=== PATIENT | male | born 1940 | race Hispanic/Latino ===

== ENCOUNTER 2019-02-16 13:48 | Inpatient (IN) | payer MEDICARE ==
[~2019-02-16] VITALS: Ht 170.2 cm; Wt 50.1 kg
--- OUTSIDE RECORDS SUMMARY | 2019-02-16 13:51 | XMS REPORT ---
[facility] Address Unknown Phone Unavailable Care Team Providers Care Director Of Recruitment Name Role Phone Unavailable Unavailable Problems This patient has no known problems. Allergies, Adverse Reactions, Alerts This patient has no known allergies or adverse reactions. Medications This patient has no known medications. Results Test Description Test Time Test Comments Text Results Atomic Results Result Comments US Head/Neck Soft Tissue 2018-12-13 14:12:07 Patient: MINOO ANDERSON Date/Time12/13/2018 12:44 CDTReason for ExamM54.2 R59.0ReportEXAM: US Head/Neck Soft TissueHISTORY: Right neck pain for one month. M54.2 R59.0Location code: R 16COMPARISON: None available time of interpretation.TECHNIQUE: Targeted grayscale and color Doppler images of the right neck, area of pain obtained.FINDINGS:No focal mass or cyst or enlarged lymph node. No area of disturbed echotexture noted in the right neck. Jugular vein is patent.IMPRESSION:No focal abnormality identified in the right neck. Final Dictated by: MD Dukes Eniola FDictated DT/TM: 12/13/2018 2:10 pmSigned by: MD Dukes Eniola FSigned (Electronic Signature): 12/13/2018 2:12 pm XR Chest 2 Views 2018-12-13 14:10:29 Patient: MINOO ANDERSON Date/Time12/13/2018 12:57 CDTReason for ExamR63.4ReportEXAM: XR Chest 2 ViewsHISTORY: Weight loss. R63.4.Location code: R 16COMPARISON: None available time of interpretation.FINDINGS: There is a 2.4 cm the nodular opacity at the left upper lung, best seen on the on the frontal view. Lungs appear somewhat hyperinflated. No pleural effusions.Cardiomediastinal silhouette is within normal limits.No aggressive osseous features. Mild degenerative changes throughout thoracic spine.IMPRESSION:2.4 cm nodular opacity, left upper lung. Final Dictated by: MD Dukes Eniola FDictated DT/TM: 12/13/2018 2:08 pmSigned by: MD Dukes Eniola FSigned (Electronic Signature): 12/13/2018 2:10 pm MRI Abdomen w/o Contrast 2018-10-19 13:56:50 Patient: MINOO ANDERSON Date/Time10/19/2018 13:07 CDTReason for ExamR94.5 [id number] OF ABDOMEN WITHOUT GADOLINIUMHISTORY: R94.5 R17. ( Abnormal LFTs. Jaundice)Location R 16TECHNIQUE: Coronal T2, coronal T1, coronal T2 FIESTA, coronal T2, sagittal T2, axial T2 fat sat, axial 2-D FIESTA, axial diffusion, radial MRCP , coronal MRCP, MRCP MIP.Contrast: None.FINDINGS:Abdomen Findings:Liver: No focal liver lesions are evident. No intra or extrahepatic biliary dilatation.Gallbladder: Moderately distended however without evidence of wall thickening. A single calculus is seen within the gallbladder lumen measuring approximately 7 mm. CBD is prominent at 8 mm however within normal limits for patient's age. The CBD tapers normally. No filling defects to suggest choledocholithiasis. Findings are confirmed on MRCP.Pancreas: No significant abnormality.Spleen: Prominent in size at 14.7 cm.Pancreas: Mildly atrophic. No pancreatic ductal dilatation or side branch ectasia.Kidneys: No significant abnormality. No hydronephrosis.Adrenals: Normal sized.Bowel: Visible bowel loops are unremarkable.Peritoneum: No ascites.Vascular:No significant abnormality.Lymph Nodes:No significant abnormality.Osseous: No aggressive appearing osseous findings. Mild disc visualized lumbar spine.IMPRESSION:1. Cholelithiasis.2. No choledocholithiasis. No intra or extrahepatic biliary dilatation.3. No focal liver lesions identified within the limits of noncontrast exam.4. Prominent spleen at 14.7 cm. Final Dictated by: MD Roseline, Wendy FDictated DT/TM: 10/19/2018 1:47 pmSigned by: MD Roseline, Wendy FSigned (Electronic Signature): 10/19/2018 1:56 pm
[2019-02-16 14:52] LABS: BASOPHILS % 0.2 % (0.0-1.0); EOSINOPHILS % 0.1 % (0.0-6.0); HEMOGLOBIN 9.8 g/dL (14.0-18.0); LYMPHOCYTES # (AUTO) 1.3 (1.0-3.2); LYMPHOCYTES % 16.1 % (18.0-39.1); MEAN CORPUSCULAR HEMOGLOBIN 38.3 pg (28-32); MEAN CORPUSCULAR VOLUME 109.4 fL (81-99); MONOCYTES # (AUTO) 0.7 (0.2-0.8); MONOCYTES % 7.9 % (4.4-11.3); NEUTROPHILS # (AUTO) 6.2 (2.1-6.9); RED BLOOD COUNT 2.56 x10e6/uL (4.3-5.7); RED CELL DISTRIBUTION WIDTH 18.2 % (11.7-14.4)
[2019-02-16 14:57] LABS: PLATELET COUNT 77 x10e3/uL (140-360)
[2019-02-16 14:59] LABS: INR 2.05; PROTHROMBIN TIME 23.8 seconds (11.9-14.5)
[2019-02-16 15:00] LABS: PARTIAL THROMBOPLASTIN TIME 56.1 seconds (23.8-35.5)
--- NOTE | 2019-02-16 15:05 | NUR ---
MD NOTIFIED AND AWARE OF CRITICAL LAB VALUE; LACTIC ACID 2.3.
[2019-02-16 15:06] LABS: ALBUMIN 2.2 g/dL (3.5-5.0); ALBUMIN/GLOBULIN RATIO 0.4 (0.8-2.0); ANION GAP 12.9 mmol/L (8-16); CALCIUM 9.3 mg/dL (8.4-10.2); CREATININE, SERUM 1.21 mg/dL (0.72-1.25)
[2019-02-16 15:07] LABS: POTASSIUM 2.9 mmol/L (3.5-5.1)
--- NOTE | 2019-02-16 15:07 | NUR ---
DR. HENSON NOTIFIED AND AWARE OF CRITICAL LAB VALUE; POTASSIUM 2.9.
[2019-02-16 15:15] LABS: CREATINE KINASE MB 0.9 ng/mL (0-5.0)
[2019-02-16 15:27] LABS: BILIRUBIN,URINE MODERATE (NEGATIVE); CLARITY,URINE SL CLOUDY (CLEAR); KETONES,URINE NEGATIVE (NEGATIVE); LEUKOCYTE ESTERASE ,URINE LARGE (NEGATIVE); NITRITE,URINE NEGATIVE (NEGATIVE); PROTEIN,URINE DIPSTICK 1+ (NEGATIVE)
[2019-02-16 15:30] LABS: COLOR,URINE AMBER (YELLOW); URINE UROBILINOGEN 8 mg/dL (0.2 - 1)
[2019-02-16 15:39] LABS: BACTERIA,URINE MANY /HPF; EPITHELIAL CELLS,URINE RARE /LPF; RBC,URINE 21-50 /HPF (0-5)
[2019-02-16 15:40] LABS: AMORPHOUS SEDIMENT,URINE MODERATE (FEW)
[2019-02-16] MEDS ORDERED: POTASSIUM CHLORIDE 20 MEQ TAB CR PO STA (15:43)
--- NOTE | 2019-02-16 15:47 | Diagnostic Imaging Report ---
EXAMINATION: CHEST 2 VIEWS INDICATION: Chest pain, weakness COMPARISON: None FINDINGS: LINES/TUBES:EKG leads overlie the chest. LUNGS:The lungs are hyperinflated. Bilateral emphysematous changes. No focal consolidation or tao pulmonary edema. PLEURA:No pleural effusion or pneumothorax. MEDIASTINUM:The cardiomediastinal silhouette appears normal in size and shape. Atherosclerotic calcifications of the thoracic aorta. BONES/SOFT TISSUES:No acute osseous injury. ABDOMEN:No free air under the diaphragm. IMPRESSION: Hyperinflated lungs with emphysematous changes. No focal pneumonia or pulmonary edema. Signed by: Celestino Cardona MD on 02/16/2019 3:43 PM
[2019-02-16] MEDS: OSELTAMIVIR PHOSPHATE 75 MG CAP PO SCH (16:01)
[2019-02-16] MEDS: CEFEPIME 2 GM/NS 0.9% 100 ML 100 ML IV SCH (16:01)
[2019-02-16] MEDS ORDERED: SODIUM CHLORIDE 0.9% 500ML 500 ML IV ONE (16:30)
[2019-02-16] MEDS ORDERED: SODIUM CHLORIDE 0.9% 500ML 500 ML ONE (16:37)
[2019-02-16] MEDS ORDERED: SODIUM CHLORIDE 0.9% 250ML 250 ML IV ONE (17:15)
[2019-02-16] MEDS ORDERED: FUROSEMIDE INJ 10 MG/ML 2 ML VIAL IV PRN (17:15)
[2019-02-16] MEDS ORDERED: PANTOPRAZOLE 40 MG 10ML VIAL IV ONE (17:30)
[2019-02-16] MEDS ORDERED: OCTREOTIDE ACETATE 0.05 MG/ML AMP IV STA (17:37)
[2019-02-16] MEDS ORDERED: PHYTONADIONE 10 MG/ML AMP SC ONE (17:45)
[2019-02-16] MEDS ORDERED: SODIUM CHLORIDE 0.9% 1000ML 1,000 ML IV ONE (17:45)
--- NOTE | 2019-02-16 17:48 | Diagnostic Imaging Report ---
EXAM: CT Abdomen and Pelvis WITH intravenous contrast INDICATION: Abdominal pain, abdominal distention COMPARISON: None. TECHNIQUE: Abdomen and pelvis were scanned utilizing a multidetector helical scanner from the lung base to the pubic symphysis after administration of IV contrast. Coronal and sagittal reformations were obtained. Routine protocol was performed. Scan was performed during portal venous phase. IV CONTRAST: 100mL of Isovue 370 ORAL CONTRAST: Water RADIATION DOSE: Total DLP: 393.0 mGy*cm Dose modulation, iterative reconstruction, and/or weight based adjustment of the mA/kV was utilized to reduce the radiation dose to as low as reasonably achievable. FINDINGS: LOWER THORAX: Atherosclerotic coronary artery calcifications. Bibasilar dependent subsegmental atelectasis. Small left pleural effusion. HEPATOBILIARY: Nodular liver surface contour consistent with cirrhosis. Multiple proximally 1 cm hypodensities in the right and left liver are too small to adequately characterize but have the appearance of cysts. No biliary ductal dilation. Mildly distended gallbladder without wall thickening. SPLEEN: Mild splenomegaly to 14.5 cm. PANCREAS: 5 mm cystic lesion in the pancreatic body may represent a side branch intraductal papillary mucinous neoplasm. No ductal dilation. ADRENALS: No adrenal nodules. KIDNEYS/URETERS: No hydronephrosis, stones, or solid mass lesions. PELVIC ORGANS/BLADDER: Coarse calcifications in the prostate. PERITONEUM / RETROPERITONEUM: Large volume ascites in the abdomen and pelvis. LYMPH NODES: No lymphadenopathy. VESSELS: Moderate atherosclerotic calcifications of the nonaneurysmal abdominal aorta and major branches. The portal vasculature is patent. There are numerous upper abdominal portosystemic varices consistent with portal hypertension. GI TRACT: No abnormal bowel wall thickening or bowel obstruction. Normal appendix. Hyperdense material within the dependent stomach likely represents ingested contents. BONES AND SOFT TISSUES: No acute osseous injury. No suspicious lytic or blastic lesions. IMPRESSION: Hepatic cirrhosis and hepatic steatosis. Large volume ascites, prominent upper abdominal systemic varices, and mild splenomegaly consistent with portal hypertension. Atherosclerotic vascular calcifications including of the coronary arteries. Signed by: Celestino Cardona MD on 02/16/2019 5:44 PM
--- OUTSIDE RECORDS SUMMARY | 2019-02-16 18:30 | XMS REPORT ---
[facility] Address Unknown Phone Unavailable Care Team Providers Care Contract Engineer Name Role Phone Allison HENSON Unavailable Unavailable Problems This patient has no known problems. Allergies, Adverse Reactions, Alerts This patient has no known allergies or adverse reactions. Medications This patient has no known medications. Results Test Description Test Time Test Comments Text Results Atomic Results Result Comments CT ABDOMEN/PELVIS W 2019-02-16 17:33:[address] [address] Patient Name: MINOO BADILLO MR #: [id number] : 1940 Age/Sex: 79/M Req #: [id number] Adm Physician: Ordered by: URSULA HENSON MD Report #: [id number] Location: ER Room/Bed: Procedure: [id number] CT/CT ABDOMEN/PELVIS W Exam Date: 02/16/19 Exam Time: 1700 REPORT STATUS: Signed EXAM: CT Abdomen and Pelvis WITH intravenous contrast INDICATION: Abdominal pain, abdominal distention COMPARISON: None. TECHNIQUE: Abdomen and pelvis were scanned utilizing a multidetector helical scanner from the lung base to the pubic symphysis after administration of IV contrast. Coronal and sagittal reformations were obtained. Routine protocol was performed. Scan was performed during portal venous phase. IV CONTR AST: 100mL of Isovue 370 ORAL CONTRAST: Water RADIATION DOSE: Total DLP: 393.0 mGy*cm Dose modulation, iterative reconstruction, and/or weight based adjustment of the mA/kV was utilized to reduce the radiation dose to as low as reasonably achievable. FINDINGS: LOWER THORAX: Atherosclerotic coronary artery calcifications. Bibasilar dependent subsegmental atelectasis. Small left pleural effusion. HEPATOBILIARY: Nodular liver surface contour consistent with cirrhosis. Multiple proximally 1 cm hypodensities in the right and left liver are too small to adequately characterize but have the appearance of cysts. No biliary ductal dilation. Mildly distended gallbladder without wall thickening. SPLEEN: Mild splenomegaly to 14.5 cm. PANCREAS: 5 mm cystic lesion in the pancreatic body may represent a side branch intraductal papillary mucinous neoplasm. No ductal dilation. ADRENALS: No adrenal nodules. KIDNEYS/URETERS: No hydronephrosis, stones, or solid mass lesions. PELVIC ORGANS/BLADDER: Coarse calcifications in the prostate. PERITONEUM / RETROPERITONEUM: Large volume ascites in the abdomen and pelvis. LYMPH NODES: No lymphadenopathy. VESSELS: Moderate atherosclerotic calcifications of the nonaneurysmal abdominal aorta and major branches. The portal vasculature is patent. There are numerous upper abdominal portosystemic varices consistent with portal hypertension. GI TRACT: No abnormal bowel wall thickening or bowel obstruction. Normal appendix. Hyperdense material within the dependent stomach likely represents ingested contents. BONES AND SOFT TISSUES: No acute osseous injury. No suspicious lytic or blastic lesions. IMPRESSION: Hepatic cirrhosis and hepatic steatosis. Large volume ascites, prominent upper abdominal systemic varices, and mild splenomegaly consistent with portal hypertension. Atherosclerotic vascular calcifications including of the coronary arteries. Signed by: Vianey Mott MD on 02/16/2019 5:44 PM Dictated By: VIANEY MOTT MD 43 Transcribed By: CHANDRIKA on 02/16/191743 COPY TO: URSULA HENSON MD CHEST 2 VIEWS 2019-02-16 15:42:00 [place] [address] Patient Name: MINOO BADILLO MR #: [id number] : 1940 Age/Sex: 79/M Req #: [id number] Adm Physician: Ordered by: URSULA HENSON MD Report #: [id number] Location: ER Room/Bed: Procedure: [id number] DX/CHEST 2 VIEWS Exam Date: Exam Time: REPORT STATUS: Signed EXAMINATION: CHEST 2 VIEWS INDICATION: Chest pain, weakness COMPARISON: None FINDINGS: LINES/TUBES:EKG leads overlie the chest. LUNGS:The lungs are hyperinflated. Bilateral emphysematous changes. No focal consolidation or tao pulmonary edema. PLEURA:No pleural effusion or pneumothorax. MEDIASTINUM:The cardiomediastinal silhouette appears normal in size and shape. Atherosclerotic calcifications of the thoracic aorta. BONES/SOFT TISSUES:No acute osseous injury. ABDOMEN:No free air under the diaphragm. IMPRESSION: Hyperinflated lungs with emphysematous changes. No focal pneumonia or pulmonary edema. Signed by: Vianey Mott MD on 02/16/2019 3:43 PM Dictated By: VIANEY MOTT MD 42 Transcribed By: CHANDRIKA on 02/16/191542 COPY TO: URSULA HENSON MD US Head/Neck Soft Tissue 2018-12-13 14:12:07 Patient: [...] MINOO ANDERSON Date/Time10/19/2018 13:07 CDTReason for ExamR94.5 [id number] OF ABDOMEN WITHOUT GADOLINIUMHISTORY: R94.5 R17. ( [...] at 14.7 cm. Final Dictated by: MD Dukes Eniola FDictated DT/TM: 10/19/2018 1:47 pmSigned by: MD Dukes Eniola FSigned (Electronic Signature): 10/19/2018 1:56 pm
[2019-02-16] MEDS: OCTREOTIDE ACETATE 500 MCG in SODIUM CHLORIDE 0.9% 250ML 249 ML IV SCH (18:34)
[2019-02-16] MEDS ORDERED: SODIUM CHLORIDE 0.9% 50ML 50 ML ONE (20:49)
[2019-02-16] MEDS ORDERED: IOPAMIDOL 370 MG/ML 200 ML INFUS..BTL INJ ONE (20:49)
[2019-02-16 20:56] LABS: BASOPHILS % 0.4 % (0.0-1.0); EOSINOPHILS % 0.1 % (0.0-6.0); HEMATOCRIT 27.1 % (38.2-49.6); HEMOGLOBIN 9.3 g/dL (14.0-18.0); LYMPHOCYTES # (AUTO) 1.1 (1.0-3.2); MEAN CORPUSCULAR HEMOGLOBIN 38.1 pg (28-32); MEAN CORPUSCULAR HGB CONC 34.3 g/dL (31-35); MEAN CORPUSCULAR VOLUME 111.1 fL (81-99); MONOCYTES # (AUTO) 0.4 (0.2-0.8); MONOCYTES % 5.2 % (4.4-11.3); NEUTROPHILS # (AUTO) 6.3 (2.1-6.9); NEUTROPHILS % 79.5 % (38.7-80.0); RED BLOOD COUNT 2.44 x10e6/uL (4.3-5.7)
[2019-02-16 20:57] LABS: PLATELET COUNT 73 x10e3/uL (140-360)
[2019-02-16] MEDS ORDERED: PANTOPRAZOLE 40 MG 10ML VIAL IV SCH (21:00)
--- NOTE | 2019-02-16 21:00 | NUR ---
Pt arrived to the unit in stable condition. Pt alert and oriented x3. Mauritanian speaking only. Daughter and son at bedside to stay. On Octreotide drip and IVF (NS at 75ml/hr). Plan to transfuse 1 unit FFP tonight per MD order. Pt with generalized weakness. Bed alarm active. Will monitor pt closely.
[2019-02-16 21:12] VITALS: BP 144/55
--- NOTE | 2019-02-16 22:41 | NUR ---
Called Dr. Lamas and informed patient having difficulty urinating. Bladder scan report (565ml). ordered ok to place lal catheter.
--- NOTE | 2019-02-16 22:45 | NUR ---
Attempted to insert 16fr lal catheter but unsuccessful. Resistance felt during insertion and pt was in extreme pain. Will rest patient for now and re-attempt later if pt still has not urinated.
[2019-02-16] MEDS ORDERED: LACTULOSE20 GM/30 M PO (22:46)
[2019-02-16] MEDS ORDERED: COMBIGAN EYE DRO5 ML IO (22:46)
[2019-02-16 23:00] VITALS: BP 144/55
--- NOTE | 2019-02-16 23:00 | NUR ---
Pt ambulated with family assistance to the bathroom. Patient had a bowel movement and urinated around 300ml dark cherri urine. Pt stated he feels a lot better. HR was 170 during ambulation but went down to 110 when back in bed.
--- NOTE | 2019-02-16 23:30 | NUR ---
Since pt urinated. No lal insertion will be done at this time per family request. Will pass information incoming day nurse.
[2019-02-16 23:55] VITALS: BP 97/55
[2019-02-17] VITALS (9 sets, daily range): BP systolic 86–108; BP diastolic 50–60
--- NOTE | 2019-02-17 00:30 | NUR ---
Started 1 unit FFP as per MD order. Dr. Kenny Parker aware.
[2019-02-17] MEDS ORDERED: SODIUM CHLORIDE 0.9% 250ML 250 ML ONE ×2 (00:32→07:53)
[2019-02-17 00:45] LABS: BASOPHILS % 0.1 % (0.0-1.0); EOSINOPHILS % 0.1 % (0.0-6.0); HEMATOCRIT 24.4 % (38.2-49.6); HEMOGLOBIN 8.9 g/dL (14.0-18.0); LYMPHOCYTES # (AUTO) 0.6 (1.0-3.2); LYMPHOCYTES % 7.5 % (18.0-39.1); MEAN CORPUSCULAR HEMOGLOBIN 40.5 pg (28-32); MEAN CORPUSCULAR HGB CONC 36.5 g/dL (31-35); MEAN CORPUSCULAR VOLUME 110.9 fL (81-99); MONOCYTES # (AUTO) 0.6 (0.2-0.8); MONOCYTES % 6.9 % (4.4-11.3); NEUTROPHILS # (AUTO) 7.3 (2.1-6.9); NEUTROPHILS % 84.8 % (38.7-80.0); PLATELET COUNT 57 x10e3/uL (140-360); RED CELL DISTRIBUTION WIDTH 17.6 % (11.7-14.4)
[2019-02-17 00:58] LABS: CREATINE KINASE MB 0.8 ng/mL (0-5.0)
[2019-02-17] MEDS: ACETAMINOPHEN 325 MG TAB PO PRN (01:17)
--- NOTE | 2019-02-17 01:40 | NUR ---
Finished transfusion of FFP and pt tolerated transfusion well. V/S stable (Blood Product form for details).
--- NOTE | 2019-02-17 02:34 | History and Physical ---
CHIEF COMPLAINT: The patient is a 79-year-old male, who comes in with confusion. HISTORY OF PRESENT ILLNESS: This is a 79-year-old male with a history of cirrhosis, only on lactulose for his encephalopathy. He was in usual state of health until about a couple weeks ago the patient started to feel tired and weak in the last 2 days. The patient was stumbling over, confused and the patient's family brought him over. He was found to have acute coagulopathy, urinary tract infection and also type A influenza. The patient admitted for the same. PAST MEDICAL HISTORY: History of cirrhosis of the liver, alcoholic. The patient also has a history of encephalopathy in the past too. The patient also has a history of benign prostatic hypertrophy, status post TURP. PAST SURGICAL HISTORY: TURP. The patient also has a history of glaucoma and psoriasis. MEDICATIONS: The patient only takes lactulose to titrate up to 3-4 bowel movements a day. ALLERGIES: THE PATIENT HAS NO KNOWN DRUG ALLERGIES. SOCIAL HISTORY: Positive for ETOH. The patient used to drink heavily. The patient is a current every day smoker too. REVIEW OF SYSTEMS: Negative for chest pain. No shortness of breath. No nausea. No vomiting. No diarrhea. No constipation. Positive for weakness. Positive for weight loss and positive for confusion. PHYSICAL EXAMINATION: VITAL SIGNS: Temperature is 98.5, pulse is 72, respirations of 12, blood pressure is 113/60, and pulse oximetry of 98%. HEENT: Normocephalic. The patient has icterus in the sclera. NECK: No JVD present. LUNGS: Decreased air entry into all lung garcia. ABDOMEN: Tender in the epigastrium. EXTREMITIES: No clubbing, no cyanosis, no edema. The patient looks cachectic and also has complete loss of muscle. LABORATORY VALUES: The patient's white count is 8.26, hemoglobin of 9.8, hematocrit 28.0, and platelet count is 77. The patient's coags; PT show 23.8, and PTT was 56.1. Chemistry: Sodium 139, potassium of 2.9, BUN of 14, creatinine of 1.21. The patient's lactic acid was 2.3, total bilirubin is 10.1, and albumin is 2.2. MICROBIOLOGY: Blood cultures are pending. Urine shows cherri color, cloud. White count is 11 to 20, many bacteria too. ASSESSMENT: 1. Acute metabolic encephalopathy. 2. Infectious encephalopathy. 3. Cirrhosis of the liver. 4. Acute mental status changes. 5. Cirrhosis of liver. 6. Haemophilus influenzae. 7. Hyperkalemia. 8. Coagulopathy and acute GI bleed. The patient also has moderate chronic iron deficiency anemia and urinary tract infection. The patient had an occult GI bleed with melena. PLAN: 1. Continue on FFP, which the patient has been getting. 2. The patient is also on octreotide at this time. 3. The patient has been getting FFP. 4. Tamiflu has been started twice a day. The patient is also on cefepime for antibiotic for urinary tract infection. Plan, await cultures. Continue monitoring his potassium, which has been replaced. CBC and CMP to be done tomorrow. The patient's progress is very guarded. Further recommendation is on clinical course. GI consult has been done and nutrition consult will be done. The patient also will need rehabilitation services as an outpatient. Discussed with family. Further recommendation per clinical course. MD SOFIA Maynard/MODL /[id number]
[2019-02-17] MEDS: CEFEPIME 2 GM/NS 0.9% 100 ML 100 ML IV SCH ×2 (03:55→15:44)
[2019-02-17 05:16] LABS: BASOPHILS % 0.1 % (0.0-1.0); EOSINOPHILS % 0.1 % (0.0-6.0); HEMOGLOBIN 7.5 g/dL (14.0-18.0); LYMPHOCYTES % 12.9 % (18.0-39.1); MEAN CORPUSCULAR HEMOGLOBIN 37.9 pg (28-32); MEAN CORPUSCULAR HGB CONC 34.1 g/dL (31-35); MEAN CORPUSCULAR VOLUME 111.1 fL (81-99); MONOCYTES # (AUTO) 0.5 (0.2-0.8); MONOCYTES % 6.8 % (4.4-11.3); NEUTROPHILS # (AUTO) 6.3 (2.1-6.9); NEUTROPHILS % 79.3 % (38.7-80.0); RED BLOOD COUNT 1.98 x10e6/uL (4.3-5.7); RED CELL DISTRIBUTION WIDTH 18.4 % (11.7-14.4)
[2019-02-17 05:20] LABS: PLATELET COUNT 48 x10e3/uL (140-360)
[2019-02-17 05:22] LABS: ALANINE AMINOTRANSFERASE 16 IU/L (0-55); ALBUMIN 2.2 g/dL (3.5-5.0); ALBUMIN/GLOBULIN RATIO 0.5 (0.8-2.0); ALKALINE PHOSPHATASE 87 IU/L (40-150); ANION GAP 11.5 mmol/L (8-16); BLOOD UREA NITROGEN 18 mg/dL (7-26); BUN/CREATININE RATIO 16 (6-25); CALCIUM 8.7 mg/dL (8.4-10.2); CARBON DIOXIDE 24 mmol/L (22-29); CHLORIDE 108 mmol/L (98-107); CREATININE, SERUM 1.16 mg/dL (0.72-1.25); EST GLOMERULAR FILTRATION RATE > 60 ML/MIN (60-); GLUCOSE 123 mg/dL (74-118); POTASSIUM 3.5 mmol/L (3.5-5.1); SODIUM 140 mmol/L (136-145)
--- NOTE | 2019-02-17 07:31 | Progress Note ---
DATE: 02/17/2019 SUBJECTIVE: A 79-year-old male, who came in with ascites, coagulopathy, hypertension, blood loss anemia, and the patient with alcoholic cirrhosis. Currently still continues to have some mental status changes, feeling better he says. Son by the bedside. No chest pain noted. No shortness of breath. The patient is less confused compared to yesterday. He has been seen by GI. The patient is due for a paracentesis today. The patient has gotten 1 unit of jumbo FFPs for hypercoagulable state. OBJECTIVE: VITAL SIGNS: Currently, temperature 99.3, pulse of 97, respirations of 16, blood pressure is 89/51, pulse oximetry of 96%. HEENT: Normocephalic, atraumatic. Pupils are reactive. Icteric. CVS: S1 and S2, tachy. ABDOMEN: Nontender and nondistended. EXTREMITIES: No clubbing, no cyanosis, no edema. The patient is generally cachectic with generalized muscle loss. MEDICATIONS: Cefepime, acetaminophen, octreotide, sodium chloride, Tamiflu, and furosemide. LABORATORY VALUES: Today's white count is 7.9, hemoglobin has dropped to 7.5, hematocrit of 22, and platelet count is 248. Chemistry shows sodium of 140, potassium of 3.5, corrected. Lactic acid is high at 2.3. AST and ALT stable. Influenza type B positive. ASSESSMENT: A 79-year-old gentleman with: 1. Acute metabolic infectious encephalopathy. 2. Cirrhosis of the liver. 3. Haemophilus influenzae. 4. Hypokalemia. 5. Coagulopathy with acute gastrointestinal bleed. PLAN: Continue with one more FFP, octreotide. The patient is on Tamiflu and cefepime for the urinary tract infection and influenza. Daily CBCs and CMP. Further recommendation per clinical course, and the patient is due for a diagnostic paracentesis today. MD CARLOS MaynardJ/MODL /[id number]
--- NOTE | 2019-02-17 08:30 | NUR ---
2nd unit of FFP finished, no adverse reaction noted, patient not in any distress, call light in reach
[2019-02-17] MEDS: OSELTAMIVIR PHOSPHATE 75 MG CAP PO SCH ×2 (09:20→16:52)
[2019-02-17 11:14] LABS: CREATINE KINASE MB 1.1 ng/mL (0-5.0)
--- NOTE | 2019-02-17 12:34 | NUR ---
patient is anxious, trying to get out from bed, trying to pull IV. Tried to redirect him, called Dr Adams moraes [facility] recvd for ativan 0.25mg 1 dose
[2019-02-17] MEDS ORDERED: LORAZEPAM INJ 2 MG/ML VIAL IV ONE (13:00)
[2019-02-17] MEDS: OCTREOTIDE ACETATE 500 MCG in SODIUM CHLORIDE 0.9% 250ML 249 ML IV SCH (15:44)
--- NOTE | 2019-02-17 16:41 | NUR ---
Spoke to Kenny Parker regarding IR couldn't do the procedure bcz of low platelet, new order recvd to do repeat PT/INR and keep him on Clear liquid diet
[2019-02-17] MEDS: BRIMONIDINE/TIMOLOL (OPTH SOLN 5 ML DRPETTE OP SCH (16:50)
[2019-02-17 17:47] LABS: INR 1.84; PROTHROMBIN TIME 21.9 seconds (11.9-14.5)
--- NOTE | 2019-02-17 18:33 | NUR ---
Blood culture result Gram + Henrique notified Dr Lamas, patient is on Cefepime 2g Antibiotic. No New orders
--- NOTE | 2019-02-17 20:35 | NUR ---
vital signs rechecked. BP 195/55 mmhg. Hr 89 b/min.
[2019-02-18] VITALS (7 sets, daily range): BP systolic 86–131; BP diastolic 53–82
--- NOTE | 2019-02-18 | NUR ---
New order received from Dr. Marissa Parker for Vitamin K IV as piggyback. Called outside pharmacy for verification. Pharmacy staff stated medication is not premixed and needs to be mix. Charge Nurse made aware.
--- NOTE | 2019-02-18 00:05 | NUR ---
Dr. Kenny Parker stated he will talk to radioligist this morning regarding US Paracentesis.
--- NOTE | 2019-02-18 00:30 | NUR ---
Dr. Marissa Parker made aware that Vitamin K is not premixed and is not given yet. rail gang supervisor notified by Charge Nurse.
[2019-02-18] MEDS ORDERED: PHYTONADIONE 10 MG/ML AMP SQ ONE (02:00)
[2019-02-18] MEDS: CEFEPIME 2 GM/NS 0.9% 100 ML 100 ML IV SCH ×2 (03:33→21:31)
[2019-02-18 05:05] LABS: BASOPHILS % 0.6 % (0.0-1.0); EOSINOPHILS % 0.7 % (0.0-6.0); HEMATOCRIT 22.2 % (38.2-49.6); HEMOGLOBIN 7.3 g/dL (14.0-18.0); MEAN CORPUSCULAR HEMOGLOBIN 37.2 pg (28-32); MEAN CORPUSCULAR HGB CONC 32.9 g/dL (31-35); MEAN CORPUSCULAR VOLUME 113.3 fL (81-99); MONOCYTES # (AUTO) 0.6 (0.2-0.8); MONOCYTES % 10.4 % (4.4-11.3); NEUTROPHILS # (AUTO) 3.7 (2.1-6.9); RED BLOOD COUNT 1.96 x10e6/uL (4.3-5.7); RED CELL DISTRIBUTION WIDTH 18.5 % (11.7-14.4)
[2019-02-18 05:14] LABS: PLATELET COUNT 43 x10e3/uL (140-360)
[2019-02-18 05:15] LABS: INR 1.94; PROTHROMBIN TIME 22.8 seconds (11.9-14.5)
[2019-02-18 05:22] LABS: ANION GAP 10.2 mmol/L (8-16); CALCIUM 8.5 mg/dL (8.4-10.2); CREATININE, SERUM 1.23 mg/dL (0.72-1.25); POTASSIUM 3.2 mmol/L (3.5-5.1)
--- NOTE | 2019-02-18 06:07 | NUR ---
Paged Dr. Lamas regarding abnormal lab result waiting for response.
[2019-02-18] MEDS ORDERED: FUROSEMIDE INJ 10 MG/ML 2 ML VIAL IV ONE (07:00)
--- NOTE | 2019-02-18 07:05 | NUR ---
DR. WALL AT BEDSIDE. GIVE 1 UNIT BLOOD THEN 1 UNIT PLASMA PER THE DR. GIVE LASIX AFTER ADMINISTERING BOTH.
--- NOTE | 2019-02-18 07:15 | NUR ---
BEDSIDE SHIFT REPORT RECEIVED FROM THE COUNTY SURVEYOR RN. EDUCATED PT ABOUT FALL PRECAUTIONS. CALL LIGHT WITH IN EASY REACH. INSTRUCTED PT TO USE CALL LIGHT FOR ALL THE NEEDS. PT VERBALIZED UNDERSTANDING. FAMILY AT BEDSIDE. BED IS LOW AND LOCKED . SIDE RAILS X2. PT DENIES NEEDS AT THIS TIME.
[2019-02-18] MEDS ORDERED: POTASSIUM CHLORIDE 10MEQ EA PO ONE (07:45)
--- NOTE | 2019-02-18 07:47 | Progress Note ---
DATE: 02/18/2019 SUBJECTIVE: The patient came in with alcoholic hepatitis, cirrhosis, confusion, encephalopathy, urinary tract infection, and also failure to thrive with cachexia. The patient is still in an obtunded position. No complaints of pain. No chest pain. No shortness of breath. Not very responsive. The patient can be stimulated with verbal stimuli. OBJECTIVE: VITAL SIGNS: Temperature is 98.1, pulse of 77, respirations of 18, blood pressure is 105/63, and pulse oximetry of 100% on room air. HEENT: Normocephalic, atraumatic. Icterus is present. CVS: S1 and S2 normal. Regular rhythm. ABDOMEN: Nontender and nondistended. EXTREMITIES: No clubbing, no cyanosis, no edema. Positive for cachectic look. The patient positive for muscle wasting too. LABORATORY VALUES: Today's white count 5.37, hemoglobin is 7.3, hematocrit of 22.2, RDW 18.5, platelets of 43, neutrophil count was normal. INR is 1.94. Vitamin K has been ordered. Serology positive for flu B positive and pending hepatitis panel. MICROBIOLOGY: Gram stain preliminary shows gram-positive rods. ASSESSMENT: 1. Sepsis. 2. Cirrhosis of the liver. 3. Encephalopathy. 4. Alcoholic hepatitis. 5. Thrombocytopenia secondary to alcoholic hepatitis. 6. Cachexia and severe protein energy malnutrition. PLAN: 1. PRBC transfusion for blood loss anemia. 2. FFP. 3. Vitamin K. The patient's family is by the bedside. Discussed with family. The patient's prognosis is guarded. We will continue to monitor the patient. MD CARLOS MaynardJ/MODL /[id number]
[2019-02-18] MEDS ORDERED: PHYTONADIONE 10MG/ML 20 MG in SODIUM CHLORIDE 0.9% 100 ML 100 ML IV SCH ×6 (08:00→16:00)
[2019-02-18] MEDS ORDERED: PANTOPRAZOLE SOD 40 MG TABEC PO SCH (09:00)
[2019-02-18] MEDS: BRIMONIDINE/TIMOLOL (OPTH SOLN 5 ML DRPETTE OP SCH ×2 (09:00→17:07)
[2019-02-18] MEDS ORDERED: PHYTONADIONE 10 MG/ML AMP IV ONE ×2 (09:00)
--- NOTE | 2019-02-18 09:00 | NUR ---
VITAMIN K INFUSION STARTED PER DR. Kenny YEE.
[2019-02-18 09:21] LABS: BAND NEUTROPHILS % (MANUAL) 1 %; EOSINOPHILS % (MANUAL) 1 % (0-7); LYMPHOCYTES % (MANUAL) 20 % (19-48); MONOCYTES % (MANUAL) 6 % (3.4-9.0); NEUTROPHILS % (MANUAL) 71 % (40-74); NUCLEATED RED BLOOD CELLS 1
[2019-02-18 09:22] LABS: ANISOCYTOSIS SLIGHT
[2019-02-18 09:23] LABS: POIKILOCYTOSIS SLIG
[2019-02-18 09:25] LABS: PLATELET ESTIMATE MODERATELY DECREASED; PLATELET MORPHOLOGY COMMENT NORMAL; STOMATOCYTES SLIGHT
[2019-02-18 09:26] LABS: HYPOCHROMASIA SLIG; POLYCHROMASIA FEW
[2019-02-18 09:28] LABS: BURR CELLS MODERATE; HELMET CELLS RARE; RBC MORPHOLOGY COMMENT ABNORMAL
[2019-02-18] MEDS: OSELTAMIVIR PHOSPHATE 75 MG CAP PO SCH ×2 (09:55→17:07)
[2019-02-18] MEDS: PANTOPRAZOLE SOD 40 MG TABEC PO SCH ×2 (09:55→17:07)
[2019-02-18] MEDS: OCTREOTIDE ACETATE 500 MCG in SODIUM CHLORIDE 0.9% 250ML 249 ML IV SCH ×3 (10:17)
--- NOTE | 2019-02-18 10:50 | NUR ---
RADIOLOGY AT BEDSIDE FOR PARACENTESIS.
--- NOTE | 2019-02-18 11:00 | NUR ---
DR. MOTT AT BEDSIDE. INFORMED PT LOW BLOOD PRESSURE.
--- NOTE | 2019-02-18 11:28 | NUR ---
BEDSIDE PARACENTESIS COMPLETED BY DR. MOTT. 500 CC REMOVED PER RADIOLOGY.
--- NOTE | 2019-02-18 11:30 | NUR ---
PAGED DR. Marissa YEE AND INFORMED PARACENTESIS COMPLETED. CALLED LAB MICROBIOLOGY AND RECONFIRMED THE ORDERS PER DR. Marissa YEE.
[2019-02-18] MEDS ORDERED: FUROSEMIDE INJ 10 MG/ML 2 ML VIAL IV PRN (12:00)
--- NOTE | 2019-02-18 12:19 | Diagnostic Imaging Report ---
PROCEDURE: Ultrasound-guided diagnostic and therapeutic paracentesis Procedural Personnel Attending physician(s): Celestino Cardona MD Pre-procedure diagnosis: Cirrhosis, ascites Post-procedure diagnosis: Same Indication: Cirrhosis and ascites, clinical concern for SBP Additional clinical history: The patient is baseline hypotensive with systolic blood pressure in the 80s. Upon discussion with Dr. Parker, decision was made to removed only 500cc rather than large volume paracentesis, which could result in hemodynamic compromise. Complications: No immediate complications. IMPRESSION: Ultrasound-guided paracentesis with drainage of 500 mL of serous fluid. Plan: Resume care by clinical team. PROCEDURE SUMMARY: - Limited abdominal ultrasound - Ultrasound-guided paracentesis - Additional procedure(s): None PROCEDURE DETAILS: Pre-procedure Consent: Informed consent for the procedure including risks, benefits and alternatives was obtained and time-out was performed prior to the procedure. Preparation: The site was prepared and draped using maximal sterile barrier technique including cutaneous antisepsis. Anesthesia/sedation Level of anesthesia/sedation: No sedation Anesthesia/sedation administered by: Not applicable Initial abdominal ultrasound Initial abdominal ultrasound was performed. Findings: Large ascites. A safe window for paracentesis was identified. Paracentesis Local anesthesia was administered. The peritoneal cavity was accessed and fluid return confirmed position. Ascites was drained. The catheter was then removed, and a sterile bandage was applied. Paracentesis access technique: Real-time ultrasound guidance Catheter placed: 5F Yueh Post-drainage ultrasound: Large ascites Additional Details Additional description of procedure: None Equipment details: None Specimens removed: Abdominal fluid Estimated blood loss (mL): Less than 10 Standardized report: [email or web address] Attestation Signer name: Celestino Cardona MD I attest that I was present for the entire procedure. I reviewed the stored images and agree with the report as written. Signed by: Celestino Cardona MD on 02/18/2019 12:15 PM
--- NOTE | 2019-02-18 12:46 | NUR ---
Nutrition Intervention Note RD Recommendation(s) for Physician: -Continue current diet per MD. -Recommend Ensure Compact BID, intake as tolerated. -Recommend appetite stimulant if medically feasible. -Encouraged intake as tolerated. -Consider addition of thiamine, folic acid and M/ per MD. -The patient meets criteria for unspecified SEVERE protein-calorie malnutrition. Plan of Care: RD following, monitoring for tolerance and adequacy. Education provided. Ensure Compact BID. Nutrition reason for involvement: MST-3 and MD consult-[address] g[address] diet education [address] Assessment 02/18: 79 YOM admitted for anemia, ascites, cirrhosis, and coagulopathy with PMH listed below. Pt was seen resting in bed (appeared very fatigued) with family at his bedside. Daughter answered all questions during the visit. She reported the pt has been losing weight gradually over the last couple of years and that he does eat but he is very picky. Pt has been consuming 50% of his meals per meal assessment. Daughter reported the pt had N/V yesterday, and has been constipated for about one week, she denied chewing or swallowing issues as well as any food allergies. Observed temporal muscle wasting as well as orbital wasting. No past weights are within his EMR. Daughter reported the pt does consume Ensure, but can only drink half of the bottle, recommended Ensure Compact and explained to the daughter that it is only 4 ounces. Recommended to consume as tolerated. Spoke to nurse about supplement order. Daughter verbalized understanding. Also educated the daughter on a low Na diet and provided nutritional handout (food label, meal planning, grocery shopping tips, food label, foods recommended and not recommended). Per MD note- the pt came in with FTT, encouraged intake as tolerated. Will continue to monitor. Principal Problems/Diagnoses: ascites, cirrhosis, coagulopathy PMH: History of cirrhosis of the liver, alcoholic. The patient also has a history of encephalopathy in the past too. The patient also has a history of benign prostatic hypertrophy, status post TURP. GI: LBM: 02/17 Skin: Intact Labs: 02/18: K 3.2, Cl 112m Gluc 160 Meds: Octreotide, protonix, tamiflu, abx, lasix, zofran Ht:67 in Wt:110 lbs BMI:17.2 kg/m^2 IBW:135 lbs Malnutrition Evaluation 02/18 The patient meets criteria for unspecified SEVERE protein-calorie malnutrition. Energy intake: <75% of estimated energy requirements for >3 months Weight loss: -unable to evaluate, daughter was unable to give weight hx and there are no weights in PMH, daughter mentioned there has been weight loss within the past 2 years Fat loss: Severe-temporal Muscle loss: Severe- hollow orbitals Supporting Evidence: Fluid accumulation: No clubbing, no cyanosis, no edema per MD note from 02/18 Functional Status: n/a Nutrition Prescription (Diet Order): 2 gm Na Estimated Nutritional Needs: Calories: 1379-6139(30-35 kcal/kg/day) Weight used : Protein : 75-100(1.5-2 gram/kg/day ) Weight used: Diet Adequacy: Not meeting calorie needs, Not meeting protein needs Diet Education Needs Assessment: Diet education indicated, but patient not appropriate for education at this time. family member was appropriate Nutrition Care Level: high Nutrition Diagnosis: chronic protein calorie malnutrition related to medical condition as evidenced by reports from the daughter of poor appetite and observed nutrition focused physical findings of malnutrition. Goal: Patient will meet 75-100% of estimated needs by follow up Progress: n/a Interventions: -mineral (sodium)-modified diet, Commercial beverage, Prescription medications, Survival information, Multivitamin/mineral supplement therapy, Collaboration with other providers Monitoring/Evaluation: -Total energy intake, Total protein intake, Prescription medication, Modified diet, Liquid supplement, Weight change, Ability to recall nutrition goals, Level of knowledge Nutrition Education Learner(s): pts family Barriers: Pt was too fatigued to participate, family was educated Cultural/Language Modifications: No cultural/language modifications noted. Readiness: acceptance Method: Provided low Na handout, discussion Topics: Low Na Diet: How to read the food label, food shopping tips, foods recommended and not recommended, meal planning, not adding salt to foods Understanding/Compliance: Expect fair understanding/compliance from pt. All questions have been answered. Signed: Dayana Finn RD, ANGY
[2019-02-18] MEDS ORDERED: SODIUM CHLORIDE 0.9% 250ML 250 ML ONE ×2 (13:10→20:04)
--- NOTE | 2019-02-18 13:10 | NUR ---
BLOOD TRANSFUSION VERIFICATION COMPLETED WITH RN. PT AND DAUGHTER AT BEDSIDE. PT AND FAMILY AGREED WITH BLOOD TRANSFUSION.
--- NOTE | 2019-02-18 13:20 | NUR ---
BLOOD TRANSFUSION STARTED. PT DENIES NEEDS AT THIS TIME.
[2019-02-18 13:44] LABS: BODY FLUID APPEARANCE SL.CLOUDY; BODY FLUID COLOR YELLOW; BODY FLUID TYPE Ascites
[2019-02-18 13:45] LABS: RBC,BODY FLUID 278 cells/uL; WBC,BODY FLUID 112 cells/uL
[2019-02-18 14:09] LABS: LYMPHOCYTES,BODY FLUID 27 %; MONO/MACROPHG,BODY FLUID 41 %; NEUTROPHILS,BODY FLUID 26 %; OTHER CELLS,BODY FLUID 6 %
--- NOTE | 2019-02-18 16:40 | NUR ---
PAGED DR. WALL REGARDING ENSURE BID COMPACT PER MONEY MARKET [employer]ER. OKAY TO START PER THE
--- NOTE | 2019-02-18 17:30 | NUR ---
BLOOD TRANSFUSION COMPLETED. NO DISTRESS NOTED. PT FAMILY AT BEDSIDE. PT DENIES NEEDS AT THIS TIME.
--- NOTE | 2019-02-18 18:20 | NUR ---
NEW ORDER FOR ATIVAN 0.25 MG IV Q6 HRS PRN PER DR. WALL
--- NOTE | 2019-02-18 19:00 | NUR ---
BEDSIDE SHIFT REPORT GIVEN TO THE NIGHT SIFT RN. BLOOD TRANSFUSION COMPLETED. 1 UNIT FFP AND LASIX NEED TO BE GIVEN. DAY SHIFT CHARGE NURSE AWARE. PT DENIES NEEDS AT THIS TIME. FAMILY AT BEDSIDE.
[2019-02-18] MEDS: ACETAMINOPHEN 325 MG TAB PO PRN (19:58)
[2019-02-18] MEDS ORDERED: PHYTONADIONE 10MG/ML 20 MG in SODIUM CHLORIDE 0.9% 100 ML 100 ML IV ONE (21:00)
[2019-02-19] VITALS (8 sets, daily range): BP systolic 100–170; BP diastolic 67–89
[2019-02-19] MEDS ORDERED: DIPHENHYDRAMINE HCL 25 MG CAP PO ONE (03:15)
[2019-02-19 05:40] LABS: BASOPHILS # (AUTO) 0.1 (0.0-0.1); BASOPHILS % 0.7 % (0.0-1.0); EOSINOPHILS % 0.6 % (0.0-6.0); HEMATOCRIT 30.7 % (38.2-49.6); HEMOGLOBIN 10.6 g/dL (14.0-18.0); LYMPHOCYTES % 13.6 % (18.0-39.1); MEAN CORPUSCULAR HEMOGLOBIN 36.6 pg (28-32); MEAN CORPUSCULAR HGB CONC 34.5 g/dL (31-35); MEAN CORPUSCULAR VOLUME 105.9 fL (81-99); MONOCYTES # (AUTO) 0.4 (0.2-0.8); MONOCYTES % 5.9 % (4.4-11.3); NEUTROPHILS # (AUTO) 5.4 (2.1-6.9); NEUTROPHILS % 78.1 % (38.7-80.0); RED CELL DISTRIBUTION WIDTH 23.6 % (11.7-14.4)
[2019-02-19 05:44] LABS: INR 1.54; PROTHROMBIN TIME 19.1 seconds (11.9-14.5)
[2019-02-19 05:45] LABS: PARTIAL THROMBOPLASTIN TIME 45.1 seconds (23.8-35.5)
[2019-02-19 05:48] LABS: PLATELET COUNT 45 x10e3/uL (140-360)
[2019-02-19 05:52] LABS: % IRON SATURATION 35 % (15-50); ALANINE AMINOTRANSFERASE 17 IU/L (0-55); ALBUMIN 2.2 g/dL (3.5-5.0); ALBUMIN/GLOBULIN RATIO 0.5 (0.8-2.0); ALKALINE PHOSPHATASE 101 IU/L (40-150); ANION GAP 10.7 mmol/L (8-16); BLOOD UREA NITROGEN 15 mg/dL (7-26); BUN/CREATININE RATIO 14 (6-25); CALCIUM 9.2 mg/dL (8.4-10.2); CARBON DIOXIDE 22 mmol/L (22-29); CHLORIDE 108 mmol/L (98-107); CREATININE, SERUM 1.08 mg/dL (0.72-1.25); EST GLOMERULAR FILTRATION RATE > 60 ML/MIN (60-); GLUCOSE 143 mg/dL (74-118); IRON 51 ug/dL (65-175); POTASSIUM 3.7 mmol/L (3.5-5.1); SODIUM 137 mmol/L (136-145); TOTAL IRON BINDING CAPACITY 146 ug/dL (261-478); TRANSFERRIN 104 mg/dL (174-364)
[2019-02-19] MEDS: OCTREOTIDE ACETATE 500 MCG in SODIUM CHLORIDE 0.9% 250ML 249 ML IV SCH ×4 (06:00→16:06)
[2019-02-19 06:11] LABS: FERRITIN 1281.38 ng/mL (21.81-274.66)
--- NOTE | 2019-02-19 07:00 | NUR ---
BEDSIDE SHIFT REPORT RECEIVED FROM NIGHT RN. PT DENIES NEEDS AT THIS TIME.
[2019-02-19 07:10] LABS: PLATELET ESTIMATE MODERATELY DECREASED; PLATELET MORPHOLOGY COMMENT NORMAL; RBC MORPHOLOGY COMMENT ABNORMAL
[2019-02-19 07:12] LABS: BURR CELLS SLIGHT
[2019-02-19 07:13] LABS: ANISOCYTOSIS SLIGHT; POIKILOCYTOSIS SLIGHT
[2019-02-19 07:14] LABS: ACANTHOCYTES FEW
[2019-02-19 07:18] LABS: ROULEAU MODERATE
[2019-02-19] MEDS: CEFEPIME 2 GM/NS 0.9% 100 ML 100 ML IV SCH ×2 (08:00→20:41)
[2019-02-19] MEDS: OSELTAMIVIR PHOSPHATE 75 MG CAP PO SCH ×2 (09:14→17:48)
[2019-02-19] MEDS: BRIMONIDINE/TIMOLOL (OPTH SOLN 5 ML DRPETTE OP SCH ×2 (09:14→17:48)
[2019-02-19] MEDS: PANTOPRAZOLE SOD 40 MG TABEC PO SCH ×2 (09:14→17:48)
--- NOTE | 2019-02-19 10:13 | Progress Note ---
DATE: 02/19/2019 SUBJECTIVE: The patient comes in with cirrhosis of the liver, coagulopathy, ascites. The patient has anemia of blood loss and hypokalemia. He is non-talkative, but responsive. The patient also had influenza B on arrival. The patient is currently talking, responsive, and family is by bedside. OBJECTIVE: VITAL SIGNS: Temperature is 97.1, pulse of 70, respirations of 16, blood pressure is 149/82, pulse oximetry of 98%. HEENT: Normocephalic. Icterus is present. CVS: S1 and S2 normal. Cachectic looking. ABDOMEN: Has fluid. EXTREMITIES: Nontender. Nondistended. The patient has florid muscle wasting. LABORATORY VALUES: From today white count of 6.97, hemoglobin of 10.6, hematocrit of 30.7, platelet count is 45 trending in the 40s at this time. Chemistries; sodium of 137, potassium is 3.7. Coags; INR is 1.54, better. Vitamin K has been given to the patient. MEDICATIONS: The patient is on cefepime at this time, pantoprazole 40 mg twice a day, oseltamivir which is Tamiflu 75 mg twice a day. He still continues on octreotide drip and Lasix 40 mg once has been given. ASSESSMENT: 1. Sepsis. 2. Influenza B. 3. Encephalopathy. 4. Cirrhosis of the liver. 5. Acute gastrointestinal bleed. 6. Thrombocytopenia. 7. Cachexia with severe protein malnutrition. The patient's hemoglobin has improved to 10.6, status post one transfusion. The patient also got 2 . MICROBIOLOGY: Blood cultures grown some gram-negative rods. PLAN: The patient is on cefepime for sepsis. We will await for culture and sensitivity. Further recommendation per clinical course. We will continue monitoring the patient along with . The patient's family has been talked to and also prognosis being guarded and explained to the patient and his family. MD CARLOS MaynardJ/MODL /[id number]
--- NOTE | 2019-02-19 17:01 | NUR ---
HOTEL CLERK HAS ASKED PT'S FAMILY 3 TIMES THIS SHIFT TO BATH AND OR CHANGE BED LINENS. FAMILY MEMBERS HAVE REFUSED STATING THEY WOULD CALL LATER.
[2019-02-19] MEDS: DIPHENHYDRAMINE HCL 25 MG CAP PO PRN (22:35)
[2019-02-20] VITALS (8 sets, daily range): BP systolic 98–138; BP diastolic 62–83
[2019-02-20] MEDS ORDERED: CHLORDIAZEPOXIDE/CLIDINIUM 1 CAP PO ONE (00:30)
[2019-02-20] MEDS: OCTREOTIDE ACETATE 500 MCG in SODIUM CHLORIDE 0.9% 250ML 249 ML IV SCH ×3 (01:24→20:53)
--- NOTE | 2019-02-20 07:00 | NUR ---
BEDSIDE SHIFT REPORT RECEIVED FROM NIGHT RN. PT DENIES NEEDS AT THIS TIME.
[2019-02-20] MEDS: DIPHENHYDRAMINE HCL 25 MG CAP PO PRN (08:00)
[2019-02-20] MEDS: PANTOPRAZOLE SOD 40 MG TABEC PO SCH ×2 (08:00→16:49)
[2019-02-20] MEDS: BRIMONIDINE/TIMOLOL (OPTH SOLN 5 ML DRPETTE OP SCH ×2 (08:00→16:49)
[2019-02-20] MEDS: OSELTAMIVIR PHOSPHATE 75 MG CAP PO SCH ×2 (08:00→16:50)
[2019-02-20] MEDS: CHLORDIAZEPOXIDE/CLIDINIUM 1 CAP PO SCH ×3 (08:00→20:53)
[2019-02-20] MEDS: CEFEPIME 2 GM/NS 0.9% 100 ML 100 ML IV SCH ×2 (08:45→20:53)
--- NOTE | 2019-02-20 10:14 | NUR ---
ST NOTE: Order acknowledged, to be completed 02/21/19
--- NOTE | 2019-02-20 10:48 | Progress Note ---
DATE: 02/20/2019 SUBJECTIVE: The patient is a 79-year-old, who comes in with confusion, cirrhosis of liver, coagulopathy, ascites, hyperkalemia, influenza B, and GI bleeding. The patient is currently stable, however, complains of a lot of itching. Daughter complains that and swallow this morning his coffee. The patient otherwise is feeling a bit better. OBJECTIVE: VITAL SIGNS: Temperature is 97.7, pulse is 76, respirations of 15, blood pressure is 129/83. HEENT: Normocephalic, atraumatic. Pupils are reactive to light and accommodation. Anicteric. CVS: S1 and S2 distant. Regular rate and rhythm. ABDOMEN: Nontender, distended. EXTREMITIES: No clubbing, no cyanosis, and no edema. Positive for muscle wasting. The patient has marked cachexia. LABORATORY DATA: None were done today. MICROBIOLOGY: Gram-negative rods are still growth detected, but sensitivity is not known at this time. ASSESSMENT: A 79-year-old gentleman with: 1. Sepsis. 2. Influenza B virus. 3. Encephalopathy. 4. Cirrhosis of the liver. 5. Acute gastrointestinal bleed. 6. Thrombocytopenia. 7. Severe protein malnutrition, energy malnutrition. PLAN: Continue current management. We are going to do a CBC, CMP tomorrow. Family by the bedside. For his itching, we will give him a patch of Benadryl 12.5, and also we will go ahead and do a swallow evaluation. Further recommendation per clinical course. MD SOFIA Maynard/MODL /[id number]
[2019-02-20] MEDS: NYSTATIN SUSPENSION 5 ML UDC PO SCH ×2 (14:11→20:53)
--- NOTE | 2019-02-20 15:00 | NUR ---
Visit made by the Spiritual Care Department Pastoral Visitor, Rodrick Bolton. PV provided pastoral presence, hospitality, and supportive listening. Pastoral Visitor informed pt/family of the scope of Medical Review Specialist Services and availability. BARBARA CHILDRESS [employer] Spiritual Care Department O: [phone] Pager: [phone] ([phone] calling from)
[2019-02-20] MEDS: DIPHENHYDRAMINE HCL INJ 50 MG/ML VIAL IV PRN ×2 (15:39→21:38)
[2019-02-20] MEDS: ACETAMINOPHEN 325 MG TAB PO PRN (21:38)
[2019-02-20] MEDS: LORAZEPAM INJ 2 MG/ML VIAL IV PRN (23:40)
[2019-02-21] VITALS (8 sets, daily range): BP systolic 86–108; BP diastolic 56–69
[2019-02-21 05:02] LABS: BASOPHILS # (AUTO) 0.1 (0.0-0.1); EOSINOPHILS # (AUTO) 0.1 (0.0-0.4); EOSINOPHILS % 1.9 % (0.0-6.0); HEMATOCRIT 30.9 % (38.2-49.6); HEMOGLOBIN 10.3 g/dL (14.0-18.0); LYMPHOCYTES # (AUTO) 1.4 (1.0-3.2); LYMPHOCYTES % 24.7 % (18.0-39.1); MEAN CORPUSCULAR HEMOGLOBIN 35.9 pg (28-32); MEAN CORPUSCULAR HGB CONC 33.3 g/dL (31-35); MEAN CORPUSCULAR VOLUME 107.7 fL (81-99); MONOCYTES # (AUTO) 0.6 (0.2-0.8); MONOCYTES % 10.1 % (4.4-11.3); NEUTROPHILS # (AUTO) 3.6 (2.1-6.9); NEUTROPHILS % 61.4 % (38.7-80.0); PLATELET COUNT 50 x10e3/uL (140-360); RED BLOOD COUNT 2.87 x10e6/uL (4.3-5.7); RED CELL DISTRIBUTION WIDTH 21.6 % (11.7-14.4)
[2019-02-21 05:21] LABS: ALBUMIN 1.9 g/dL (3.5-5.0); ALBUMIN/GLOBULIN RATIO 0.4 (0.8-2.0); ANION GAP 11.8 mmol/L (8-16); CALCIUM 8.6 mg/dL (8.4-10.2); CREATININE, SERUM 1.24 mg/dL (0.72-1.25); POTASSIUM 3.8 mmol/L (3.5-5.1)
[2019-02-21] MEDS: NYSTATIN SUSPENSION 5 ML UDC PO SCH ×3 (06:11→22:00)
--- NOTE | 2019-02-21 07:43 | Progress Note ---
DATE: 02/21/2019 SUBJECTIVE: A 79-year-old gentleman, who came in with cirrhosis of the liver, confusion, coagulopathy, and urinary tract infection and influenza. The patient is currently feeling better. Yesterday, the patient did eat baked potato, but threw it up right after. Nystatin was given to him. No chest pain. No shortness of breath. Feeling a little bit better. SUBJECTIVE: VITAL SIGNS: Temperature is 96.3, pulse of 83, respirations of 17, blood pressure is 101/56, pulse oximetry of 93% on room air. HEENT: Normocephalic, atraumatic. Icterus present. CVS: S1 and S2 normal. Regular rate and rhythm. ABDOMEN: Nontender, distended. EXTREMITIES: No clubbing, no cyanosis, no edema. Cachexia present. LABORATORY VALUES: Today's hemoglobin of 10.3, hematocrit of 30.9, and platelet has gone up to 50. Chemistries; sodium of 142, potassium 3.8, BUN of 18, creatinine of 1.24. AST was 38. ASSESSMENT: 1. This 79-year-old male with history of cirrhosis of liver with alcoholic hepatitis, continues to do poorly. 2. Acute blood loss anemia. The patient's hemoglobin and hematocrit have improved to 10.3 and 30.9, status post transfusion. Platelet count has gone up to 50. 3. Cachexia. Nutrition consult is on-board. 4. Generalized debility. We will continue with physical therapy, needs placement after this. The patient is improving slowly. 5. For his influenza B, the patient is currently on Tamiflu, which can be stopped. Further recommendation per clinical course. We will continue to monitor the patient. The patient is also on cefepime for urinary tract infection. 6. Microbiology, gram-negative rods. Continue on cefepime. MD SOFIA Maynard/SUNDAY /[id number]
[2019-02-21] MEDS: BRIMONIDINE/TIMOLOL (OPTH SOLN 5 ML DRPETTE OP SCH ×2 (09:00→16:43)
[2019-02-21] MEDS: OSELTAMIVIR PHOSPHATE 75 MG CAP PO SCH (09:10)
[2019-02-21] MEDS: PANTOPRAZOLE SOD 40 MG TABEC PO SCH ×2 (09:10→16:43)
[2019-02-21] MEDS: LACTULOSE SYRUP 20 GM/30 ML UDC PO SCH ×2 (09:10→16:43)
[2019-02-21] MEDS: CHLORDIAZEPOXIDE/CLIDINIUM 1 CAP PO SCH ×3 (09:10→21:00)
[2019-02-21] MEDS: CEFEPIME 2 GM/NS 0.9% 100 ML 100 ML IV SCH ×2 (09:10→20:00)
--- NOTE | 2019-02-21 12:14 | NUR ---
Manual BP 88/52
--- NOTE | 2019-02-21 12:16 | NUR ---
Paged Dr. Lamas regarding BP 88/52. Waiting automation controls expert back
--- NOTE | 2019-02-21 14:32 | NUR ---
Spoke to Dr. Lamas regarding plan of care. requesting PT eval to see how patient is moving and if he will possibly need placement. PT eval and treat order entered
--- NOTE | 2019-02-21 15:54 | Diagnostic Imaging Report ---
PROCEDURE: X-RAY MODIFIED BARIUM SWALLOW COMPARISON: None. INDICATION: Aspiration Radiation Details: Fluoroscopy time: 2.2 minutes Cumulative dose: 2.9 mGy DISCUSSION: Fluoroscopic examination was performed in conjunction with speech pathology during swallowing a variety of thin and thick liquid consistencies. Provided images demonstrate no laryngeal penetration or aspiration. CONCLUSION: Modified barium swallow demonstrating no laryngeal penetration or aspiration. Please refer to the speech pathology report for further details. Signed by: Celestino Cardona MD on 02/21/2019 3:51 PM
--- NOTE | 2019-02-21 19:48 | NUR ---
RECEIVED PT IN BED AOX2 .DENIES PAIN RESPIRATIONS ARE EVEN AND UNLABORED SKIN WARM AND DRY TO TOUCH.CALL LIGHT WITH IN REACH . FAMILY AT THE BEDSIDE CONTINUE TO MONITOR
[2019-02-22] VITALS (8 sets, daily range): BP systolic 91–138; BP diastolic 53–87
[2019-02-22 05:04] LABS: BASOPHILS # (AUTO) 0.1 (0.0-0.1); BASOPHILS % 1.2 % (0.0-1.0); EOSINOPHILS # (AUTO) 0.2 (0.0-0.4); EOSINOPHILS % 3.1 % (0.0-6.0); HEMATOCRIT 28.6 % (38.2-49.6); HEMOGLOBIN 9.7 g/dL (14.0-18.0); LYMPHOCYTES # (AUTO) 1.3 (1.0-3.2); LYMPHOCYTES % 25.6 % (18.0-39.1); MEAN CORPUSCULAR HEMOGLOBIN 36.1 pg (28-32); MEAN CORPUSCULAR HGB CONC 33.9 g/dL (31-35); MEAN CORPUSCULAR VOLUME 106.3 fL (81-99); MONOCYTES # (AUTO) 0.5 (0.2-0.8); MONOCYTES % 9.8 % (4.4-11.3); NEUTROPHILS % 59.5 % (38.7-80.0); RED BLOOD COUNT 2.69 x10e6/uL (4.3-5.7); RED CELL DISTRIBUTION WIDTH 22.3 % (11.7-14.4)
[2019-02-22 05:06] LABS: PLATELET COUNT 48 x10e3/uL (140-360)
[2019-02-22 05:29] LABS: ALBUMIN 1.8 g/dL (3.5-5.0); ALBUMIN/GLOBULIN RATIO 0.4 (0.8-2.0); ANION GAP 10.8 mmol/L (8-16); CALCIUM 8.8 mg/dL (8.4-10.2); CREATININE, SERUM 1.4 mg/dL (0.72-1.25); POTASSIUM 3.8 mmol/L (3.5-5.1)
[2019-02-22] MEDS: NYSTATIN SUSPENSION 5 ML UDC PO SCH ×3 (06:33→22:00)
[2019-02-22] MEDS: LACTULOSE SYRUP 20 GM/30 ML UDC PO SCH ×3 (06:33→22:00)
--- NOTE | 2019-02-22 06:36 | NUR ---
PT RESTED DURING THE NIGHT .DENIES PAIN .NO ACUTE DISTRESS NOTED .FAMILY AT THE BEDSIDE .CALL LIGHT WITH IN REACH .CONTINUE TO MONITOR
--- NOTE | 2019-02-22 07:02 | NUR ---
BEDSIDE REPORT GIVEN TO THE ON COMING NURSE
--- NOTE | 2019-02-22 07:50 | Progress Note ---
DATE: 02/22/2019 SUBJECTIVE: A 79-year-old gentleman with cirrhosis of the liver, thrombocytopenia, urinary tract infection, and influenza. The patient is currently stable. Physical therapy and occupational therapy order have been done. Possible transfer to SNF was pending. LABORATORY VALUES: His platelet count . White count is 5.08, hemoglobin 9.7, hematocrit 28.6. The patient is stable. OBJECTIVE: VITAL SIGNS: Temperature is 97.5, pulse of 67, blood pressure is 91/53, and pulse oximetry of 91%. HEENT: Normocephalic. Icterus present. CVS: S1, S2 distant. Regular rate and rhythm. ABDOMEN: Distended. Ascites present. EXTREMITIES: Cachectic, negative for edema. Laboratory values as mentioned above. Sodium is 143, potassium 3.8, and total bilirubin is 6.6. Vitamin B12 1824. ASSESSMENT: A 79-year-old gentleman with, 1. Acute alcoholic hepatitis. 2. Acute blood loss anemia status post transfusion. 3. Thrombocytopenia secondary to cirrhosis. 4. Cachexia, nutritional consult. 5. Generalized debility. Needs physical therapy and placement. 6. Influenza B. We will stop the Tamiflu and microbiology shows gram-negative rods. We will continue on cefepime. Further recommendation per clinical course. The patient will be transferred to the SNF when bed available. Dr. Parker is on the case. MD SOFIA Maynard/MODL /[id number]
[2019-02-22] MEDS: BRIMONIDINE/TIMOLOL (OPTH SOLN 5 ML DRPETTE OP SCH ×2 (08:00→17:00)
[2019-02-22] MEDS: CEFEPIME 2 GM/NS 0.9% 100 ML 100 ML IV SCH (08:00)
[2019-02-22] MEDS: CHLORDIAZEPOXIDE/CLIDINIUM 1 CAP PO SCH ×3 (09:08→21:00)
[2019-02-22] MEDS: DIPHENHYDRAMINE HCL 25 MG CAP PO PRN (09:08)
[2019-02-22] MEDS: PANTOPRAZOLE SOD 40 MG TABEC PO SCH ×2 (09:08→17:00)
[2019-02-22] MEDS: ONDANSETRON HCL INJ 2MG/ML 2ML 2 MG/ML VIAL IV PRN (10:34)
--- NOTE | 2019-02-22 11:25 | NUR ---
Spoke to Dr. Saleem Parker about patient's complaint of severe abdominal pain and vomiting x 3. New orders received.
--- NOTE | 2019-02-22 11:47 | NUR ---
Patient complaint of "severe abdominal pain". Patient does not want Tylenol for pain and has nothing else ordered PRN. Paged Dr. Lamas
--- NOTE | 2019-02-22 12:33 | NUR ---
2nd page to Dr. Lamas regarding medication for patient's abdominal pain. Waiting director of consumer marketing back
[2019-02-22] MEDS: MORPHINE SULFATE 2 MG/ML SYR 1ML IV PRN ×2 (12:55→13:43)
--- NOTE | 2019-02-22 13:06 | NUR ---
SPOKE WITH FAMILY ABOUT SNF ORDER THEY LIVE BY THE [address]. WILL RESEARCH AND FIND A FACILITY IN NETWORK FOR THEM
--- NOTE | 2019-02-22 13:57 | NUR ---
Dr. Kenny Parker called regarding CT abdomen/pelvis results , he said a STAT ID and surgery consult was needed and to call Dr. Lamas. Called Dr. Lamas and notified him about the cat scan results, stat consults were obtained and called.
--- NOTE | 2019-02-22 13:58 | Diagnostic Imaging Report ---
EXAM: CT Abdomen and Pelvis WITHOUT intravenous contrast INDICATION: Abdominal pain COMPARISON: CT abdomen and pelvis of 02/16/2019 TECHNIQUE: Abdomen and pelvis were scanned utilizing a multidetector helical scanner from the lung base to the pubic symphysis without administration of IV contrast. Coronal and sagittal reformations were obtained. IV CONTRAST: None ORAL CONTRAST: Gastrografin COMPLICATIONS: None RADIATION DOSE: Total DLP: 273.7 mGy*cm Dose modulation, iterative reconstruction, and/or weight based adjustment of the mA/kV was utilized to reduce the radiation dose to as low as reasonably achievable. FINDINGS: LOWER THORAX: Bibasilar dependent subsegmental atelectasis. Small bilateral pleural effusions left greater than right. Scattered atherosclerotic coronary artery calcifications. HEPATOBILIARY: Cirrhotic liver surface contour and shrunken liver. Subcentimeter hypodense lesions are not well seen compared to the prior contrast-enhanced study of 02/16/2019. The gallbladder contains layering small radiodense calculi without wall thickening. SPLEEN: No splenomegaly. PANCREAS: No focal masses or ductal dilatation. ADRENALS: No adrenal nodules. KIDNEYS/URETERS: Unchanged 4 to 5 mm nonobstructive left lower pole renal calculi. No hydronephrosis. PELVIC ORGANS/BLADDER: Distended bladder containing hyperdense material. PERITONEUM / RETROPERITONEUM: Large volume ascites. No free air. LYMPH NODES: No lymphadenopathy. VESSELS: Extensive gas throughout the portal venous system. Upper abdominal portosystemic varices. Atherosclerotic calcifications of the nonaneurysmal abdominal aorta and major branches. GI TRACT: No abnormal bowel wall thickening or bowel obstruction. Air filled appendix. BONES AND SOFT TISSUES: No acute osseous injury. No suspicious lytic or blastic lesions. IMPRESSION: New extensive gas within the portal venous system of uncertain etiology. In the setting of severe abdominal pain, this could be related to occult bowel perforation or ischemia which is not well seen on this noncontrast exam. Severe liver cirrhosis with large volume ascites and upper abdominal portosystemic varices compatible with portal hypertension. Cholelithiasis without CT findings of cholecystitis. Distended bladder containing hyperdense material. However, there is no record of the patient receiving IV contrast in the last several days. A less likely consideration would be blood product in the bladder. The above findings were discussed with Dr. Parker on 02/22/2019 1:35 PM, who responded indicating that the communication was understood. Signed by: Celestino Cardona MD on 02/22/2019 1:54 PM
--- NOTE | 2019-02-22 14:05 | NUR ---
BP: 120/90 HR : 72 Patient is awake alert x 1, but patient is baseline confused at times.
--- NOTE | 2019-02-22 14:15 | NUR ---
Dr. Kenny Parker called to check if consults had been placed, I told him all consults were called STAT and Dr. Lamas was notified.
[2019-02-22 15:07] LABS: BASOPHILS # (AUTO) 0.1 (0.0-0.1); BASOPHILS % 1.1 % (0.0-1.0); EOSINOPHILS # (AUTO) 0.1 (0.0-0.4); EOSINOPHILS % 2.1 % (0.0-6.0); HEMATOCRIT 30.4 % (38.2-49.6); HEMOGLOBIN 10.5 g/dL (14.0-18.0); LYMPHOCYTES # (AUTO) 1.1 (1.0-3.2); MEAN CORPUSCULAR HEMOGLOBIN 37.4 pg (28-32); MEAN CORPUSCULAR HGB CONC 34.5 g/dL (31-35); MEAN CORPUSCULAR VOLUME 108.2 fL (81-99); MONOCYTES # (AUTO) 0.6 (0.2-0.8); MONOCYTES % 10.9 % (4.4-11.3); NEUTROPHILS # (AUTO) 3.6 (2.1-6.9); NEUTROPHILS % 64.6 % (38.7-80.0); RED BLOOD COUNT 2.81 x10e6/uL (4.3-5.7); RED CELL DISTRIBUTION WIDTH 21.9 % (11.7-14.4)
[2019-02-22 15:09] LABS: PLATELET COUNT 57 x10e3/uL (140-360)
--- NOTE | 2019-02-22 15:16 | NUR ---
Nutrition Intervention Note RD Recommendation(s) for Physician: -Continue current diet per MD. -Continue Ensure Compact BID -Recommend appetite stimulant if medically feasible. -Encouraged intake as tolerated. -Consider addition of thiamine, folic acid and M/ per MD. -The patient meets criteria for unspecified SEVERE protein-calorie malnutrition. Plan of Care: RD following, monitoring for tolerance and adequacy. Education provided. Ensure Compact BID. Nutrition reason for involvement: follow up RD Assessment 02/22: Pt seen for follow up. Discussed during am rounds. Pt with N/V and significant pain at time of visit per family at bedside. Pt with fluctuating po intake, 25-90% of meals since admit. Pt drinking some of the Ensure Compact, family reports they are encouraging supplement intake if pt is not eating well. Encouraged diet and supplement intake as tolerated. Prior to today, no GI distress reported. All questions and concerns addressed at time of visit. Will continue to monitor. 02/18: 79 YOM admitted for anemia, ascites, cirrhosis, and coagulopathy with PMH listed below. Pt was seen resting in bed (appeared very fatigued) with family at his bedside. Daughter answered all questions during the visit. She reported the pt has been losing weight gradually over the last couple of years and that he does eat but he is very picky. Pt has been consuming 50% of his meals per meal assessment. Daughter reported the pt had N/V yesterday, and has been constipated for about one week, she denied chewing or swallowing issues as well as any food allergies. Observed temporal muscle wasting as well as orbital wasting. No past weights are within his EMR. Daughter reported the pt does consume Ensure, but can only drink half of the bottle, recommended Ensure Compact and explained to the daughter that it is only 4 ounces. Recommended to consume as tolerated. Spoke to nurse about supplement order. Daughter verbalized understanding. Also educated the daughter on a low Na diet and provided nutritional handout (food label, meal planning, grocery shopping tips, food label, foods recommended and not recommended). Per MD note- the pt came in with FTT, encouraged intake as tolerated. Will continue to monitor. Principal Problems/Diagnoses: ascites, cirrhosis, coagulopathy PMH: History of cirrhosis of the liver, alcoholic. The patient also has a history of encephalopathy in the past too. The patient also has a history of benign prostatic hypertrophy, status post TURP. GI: LBM: 11/5 Skin: Intact Labs: 02/22: Na 143, K 3.8, BUN 19, Cr 1.4, Gluc 165 Meds: protonix, abx, lactulose, zofran, lasix Ht:67 in Wt:110 lbs BMI:17.2 kg/m^2 IBW:135 lbs Malnutrition Evaluation 02/18 The patient meets criteria for unspecified SEVERE protein-calorie malnutrition. Energy intake: <75% of estimated energy requirements for >3 months Weight loss: -unable to evaluate, daughter was unable to give weight hx and there are no weights in PMH, daughter mentioned there has been weight loss within the past 2 years Fat loss: Severe-temporal Muscle loss: Severe- hollow orbitals Supporting Evidence: Fluid accumulation: No clubbing, no cyanosis, no edema per MD note from 02/18 Functional Status: n/a Nutrition Prescription (Diet Order): 2 gm Na Estimated Nutritional Needs: Calories: 5782-3233(30-35 kcal/kg/day) Weight used : CBW Protein : 75-100(1.5-2 gram/kg/day ) Weight used: CBW Diet Adequacy: Not meeting calorie needs, Not meeting protein needs Diet Education Needs Assessment: Diet education indicated, but patient not appropriate for education at this time. family member was appropriate Nutrition Care Level: high Nutrition Diagnosis: chronic protein calorie malnutrition related to medical condition as evidenced by reports from the daughter of poor appetite and observed nutrition focused physical findings of malnutrition. Goal: Patient will meet 75-100% of estimated needs by follow up Progress: progressing Interventions: -mineral (sodium)-modified diet, Commercial beverage, Prescription medications, Survival information, Multivitamin/mineral supplement therapy, Collaboration with other providers Monitoring/Evaluation: -Total energy intake, Total protein intake, Prescription medication, Modified diet, Liquid supplement, Weight change, Ability to recall nutrition goals, Level of knowledge Nutrition Education 02/18 Learner(s): pts family Barriers: Pt was too fatigued to participate, family was educated Cultural/Language Modifications: No cultural/language modifications noted. Readiness: acceptance Method: Provided low Na handout, discussion Topics: Low Na Diet: How to read the food label, food shopping tips, foods recommended and not recommended, meal planning, not adding salt to foods Understanding/Compliance: Expect fair understanding/compliance from pt. All questions have been answered. Signed: Yumiko Arenas RD, LD, CNSC
[2019-02-22 15:30] LABS: ALBUMIN 1.8 g/dL (3.5-5.0); ALBUMIN/GLOBULIN RATIO 0.4 (0.8-2.0); ANION GAP 10.8 mmol/L (8-16); CALCIUM 9.2 mg/dL (8.4-10.2); CREATININE, SERUM 1.39 mg/dL (0.72-1.25); POTASSIUM 3.8 mmol/L (3.5-5.1)
--- NOTE | 2019-02-22 15:45 | NUR ---
FAMILY SIGNED CHOICE FOR [facility], COMPLETED PACKET PASRR AND RTF, FAXED CLINICALS TO [phone]. WAITING ON AUTH.
[2019-02-22] MEDS ORDERED: GENTAMICIN 120MG/NS 100ML 100 ML IV ONE (17:30)
[2019-02-22] MEDS: MEROPENEM 500MG/ NS 50ML 50 ML IV SCH (17:40)
--- NOTE | 2019-02-22 18:37 | NUR ---
Dr. Morris, Dr. Crocker, Dr. Morris and Dr. Lamas have all made rounds on the patient and met with the family at the bedside regarding patient's current status/condition. Family verbalized understanding. The family is waiting on a brother to come and they will make a decision regarding code/DNR status
--- NOTE | 2019-02-22 19:17 | NUR ---
RECEIVED PT IN BED AOX3 .DENIES PAIN .FAMILY AT THE BEDSIDE .DOCTORS IN THE PT CASE TALKED TO THE SITUATION AND WAITING TO THE SON TO MAKE DECEPTION .PT VITALS STABLE CALL LIGHT WITH IN REACH .CONTINUE TO MONITOR Addendum: 02/22/19 at 1921 by [place] RN WRONG PT
--- NOTE | 2019-02-22 19:21 | NUR ---
RECEIVED PT IN BED AOX2 .DENIES PAIN .FAMILY AT THE BEDSIDE .DOCTORS IN THE PT CASE TALKED TO THE CONDITIONS OF THE PT AND WAITING TO THE SON TO MAKE DEACCESSION .PT VITALS STABLE CALL LIGHT WITH IN REACH .CONTINUE TO MONITOR Addendum: 02/22/19 at 2012 by [place] RN WRONG INFORMATION
--- NOTE | 2019-02-22 19:43 | Diagnostic Imaging Report ---
EXAMINATION: CHEST SINGLE (PORTABLE) COMPARISON: Chest x-ray 02/16/2019, CT abdomen/pelvis 1319 hours INDICATION: Anemia, ascites, pneumonia ^r/o pneomnia ^[id number] ^1905 DISCUSSION: Frontal view of the chest obtained at 2003 hours. HEART AND MEDIASTINUM: The heart is normal in size. The aortic arch is tortuous and stable in morphology LINES: None. LUNGS/PLEURA: The lungs are diffusely hyperinflated at baseline consistent with COPD. There are increasing basilar airspace opacities, left greater than right, suggestive of pleural effusions. New subtle airspace opacity in the inferior right upper lobe. No interstitial edema. No pneumothorax. BONES AND SOFT TISSUES: No focal osseous lesion. The soft tissues are normal. ABDOMEN: There is stable gaseous dilatation of the stomach and hepatic flexure of the colon compared to CT. Rounded hyperdensity in the stomach is suggestive of dense barium. No intramural air. No free air beneath the diaphragm. IMPRESSION: New bilateral pleural effusions and basilar atelectasis. Underlying pneumonia cannot be excluded. New subtle airspace opacity in the right upper lobe may represent atelectasis or infiltrate. Stable gaseous dilatation of the stomach and colon. This may be the result of obstruction or ischemia as suggested on CT. Signed by: Dr. Elmer Rivera MD on 02/22/2019 7:40 PM
--- NOTE | 2019-02-22 19:45 | NUR ---
RECEIVED PT IN LETHARGIC .RESPIRATIONS ARE EVEN AND UNLABORED .FAMILY AT THE BEDSIDE .DOCTORS IN THE PT CASE TALKED TO THE CONDITIONS OF THE PT AND WAITING TO THE SON TO MAKE DEACCESSION .PT VITALS STABLE CALL LIGHT WITH IN REACH .CONTINUE TO MONITOR
[2019-02-22] MEDS: METRONIDAZOLE 500MG/NS 100ML 100 ML IV SCH (20:00)
[2019-02-22] MEDS ORDERED: VANCOMYCIN 1GM/NS 250 ML 250 ML IV SCH (21:00)
--- NOTE | 2019-02-22 22:36 | NUR ---
FAMILY WANTED TO CHANGE CODE STATUS TO DNAR .PAGED DR WALL AND CHANGED THE CODE STATUS TO DNAR
[2019-02-23] VITALS (9 sets, daily range): BP systolic 94–108; BP diastolic 61–75
--- NOTE | 2019-02-23 00:01 | Consultation ---
DATE OF CONSULTATION: 02/22/2019 REASON FOR CONSULTATION: Sepsis. HISTORY OF PRESENT ILLNESS: This patient who is a 79-year-old male, history of alcoholism, history of liver cirrhosis, was diagnosed at least eight months ago, but he continued to drink. The patient apparently presented to the emergency room here with altered mental status. The patient has been weak for 2 weeks before he came here. He came to the emergency room, he was found hypercoagulable. He was found to have sepsis, UTI, also type A influenza. The patient was admitted, started on treatment, but today apparently he is worse. I am asked to see him. A CAT scan of abdomen and pelvis was done same urgently. The patient was lethargic, family is at the bedside, had a long discussion with them. PAST MEDICAL HISTORY: The patient has a past medical history of liver cirrhosis eight months, alcoholism for very prolong time, encephalopathy. The patient had also history of prostate hypertrophy, status post TURP. PAST SURGICAL HISTORY: TURP and glaucoma as well as psoriasis. ALLERGIES: NKA. SOCIAL HISTORY: Alcoholism, actively till now. He also smoke every day. The patient was admitted on February 16, 2019. He has been here since then. LABORATORY DATA: Since he came here, his blood cultures showing gram-negative rods. Sensitivity is still pending. His white count is 6.9, today is 5.6, hemoglobin 10.5, his platelet of 57. His sodium 142, potassium 3.8 with creatinine 1.24, total protein 6.3, and albumin 1.9. He had a CAT scan of the abdomen and pelvis, which showed he had new extensive gas within the portal venous system, which could represent occult bowel perforation or ischemia. Severe liver cirrhosis, cholelithiasis without evidence of cholecystitis with distended gallbladder. MEDICATIONS: He is currently on: 1. Morphine. 2. Zofran. 3. Benadryl. 4. Protonix. 5. Cefepime q.12. 6. Ativan. 7. Tylenol. PHYSICAL EXAMINATION: GENERAL: He is lethargic, could not provide any complaint. VITAL SIGNS: Stable and afebrile. HEENT: A little bit pale, but icteric. Normocephalic. CHEST: Few crackles at the bases. COR: S1 and S2. No S3, S4, or murmur. ABDOMEN: Soft, distended. EXTREMITIES: No edema. SKIN: No rash. IMPRESSION: 1. I think the patient has sepsis with urinary tract infection, sepsis with gram-negative bacteremia. 2. Concern about abdominal process. The patient has liver cirrhosis with hypercoagulable state. He also have influenza B on admission. He also has acute on chronic kidney disease. 3. Malnutrition, severe with hypoalbuminemia. 4. Alcoholism, active. 5. Smoker, still active. RECOMMENDATION: We put him on meropenem 500 q.8, Levaquin 500 q.24. Initially, I put him on Flagyl and vancomycin, but after the availability of the cultures, then I am going to change my mind to give him meropenem and Levaquin as above, but keep the Flagyl also for new coverage. He is also on Tamiflu. He received five days. We will get a chest x-ray and reassess. His prognosis is extremely poor. Discussed with the family the need to tell us about DNR. I went back and visited the patient and the family. Prognosis is extremely poor as mentioned above. We will follow. MD DOMINGA Obregon/SUNDAY /[id number]
[2019-02-23] MEDS: ONDANSETRON HCL INJ 2MG/ML 2ML 2 MG/ML VIAL IV PRN (01:32)
--- NOTE | 2019-02-23 02:33 | NUR ---
PT WAS VOMITING AND GIVEN ZOFRAN .FAMILY AT THE BEDSIDE .DR NESS HAS SEEN THE PT .CONTINUE TO MONITOR
[2019-02-23 04:54] LABS: BASOPHILS % 0.2 % (0.0-1.0); HEMATOCRIT 34.7 % (38.2-49.6); HEMOGLOBIN 12.3 g/dL (14.0-18.0); LYMPHOCYTES % 7.9 % (18.0-39.1); MEAN CORPUSCULAR HEMOGLOBIN 36.5 pg (28-32); MEAN CORPUSCULAR HGB CONC 35.4 g/dL (31-35); MONOCYTES # (AUTO) 0.8 (0.2-0.8); MONOCYTES % 6.4 % (4.4-11.3); NEUTROPHILS # (AUTO) 10.6 (2.1-6.9); NEUTROPHILS % 84.9 % (38.7-80.0); RED BLOOD COUNT 3.37 x10e6/uL (4.3-5.7); RED CELL DISTRIBUTION WIDTH 22.3 % (11.7-14.4)
[2019-02-23 04:56] LABS: PLATELET COUNT 96 x10e3/uL (140-360)
[2019-02-23 05:15] LABS: ALBUMIN 1.8 g/dL (3.5-5.0); ALBUMIN/GLOBULIN RATIO 0.3 (0.8-2.0); ANION GAP 12.9 mmol/L (8-16); CALCIUM 9.4 mg/dL (8.4-10.2); CREATININE, SERUM 1.44 mg/dL (0.72-1.25); POTASSIUM 3.9 mmol/L (3.5-5.1)
[2019-02-23] MEDS: METRONIDAZOLE 500MG/NS 100ML 100 ML IV SCH ×2 (05:49→12:00)
[2019-02-23] MEDS: MEROPENEM 500MG/ NS 50ML 50 ML IV SCH ×4 (05:49→17:02)
[2019-02-23] MEDS: LACTULOSE SYRUP 20 GM/30 ML UDC PO SCH ×3 (05:49→21:36)
[2019-02-23] MEDS: NYSTATIN SUSPENSION 5 ML UDC PO SCH ×3 (05:49→21:36)
--- NOTE | 2019-02-23 06:18 | NUR ---
PT IS LETHARGIC AND NON RESPONSIVE .GIVEN IV ABTS NOT GIVEN PO MEDS . FAMILY AT THE BEDSIDE .CONTINUE TO MONITOR
[2019-02-23 06:31] LABS: PLATELET ESTIMATE MODERATELY DECREASED
[2019-02-23 06:32] LABS: PLATELET MORPHOLOGY COMMENT FEW LARGE
[2019-02-23 06:33] LABS: ANISOCYTOSIS MODERATE; RBC MORPHOLOGY COMMENT ABNORMAL
--- NOTE | 2019-02-23 07:00 | NUR ---
RCD PT AT BED PT IS NOT ALERT AND NOT ORIENTED PT IS RESPONDING ALL THE PAIN FUL STIMULI PT IN DNR FAMILY AT BED SIDE CHANGED THE POSITION ON RT SIDE BED LOW AND LOCKED CALL LIGHT IN REACH
--- NOTE | 2019-02-23 07:09 | NUR ---
BEDSIDE REPORT GIVEN TO THE ONCOMING NURSE .
--- NOTE | 2019-02-23 08:49 | Progress Note ---
DATE: 02/23/2019 SUBJECTIVE: A 79-year-old male, who comes in with acute alcoholic hepatitis, confusion, coagulopathy, and recent diagnosis of portal vein gas. The patient is currently nonresponsive to touch and verbal stimuli, eyes are opened. However, and looks comfortable. Family by the bedside. OBJECTIVE: VITAL SIGNS: Temperature is 97.2, tachycardic, respirations of 15, blood pressure is 105/75, pulse oximetry of 95%. The patient has been kept DNR. HEENT: Normocephalic, atraumatic. Eyes, icterus present. CVS: S1 and S2, tachy. ABDOMEN: Tender and ascites. EXTREMITIES: No clubbing, no cyanosis, no edema. LABORATORY VALUES: White count is 12,000, hemoglobin of 12.3, neutrophil count of 84.9. IMAGING STUDIES: From yesterday does show gas in the portal vein, serosal liver, distended gallbladder with hyperdense material. The patient's chest x-ray from yesterday showed new bilateral pleural effusion and bilateral atelectasis, underlying pneumonia cannot be excluded. ASSESSMENT: 1. Mr. Gomez is a 79-year-old with alcoholic hepatitis. 2. Questionable pneumonia. 3. Sepsis. 4. Hypertensive episodes. 5. Encephalopathy, metabolic and toxic. PLAN: The patient is DNR. He has been started on meropenem, metronidazole, and vancomycin at this time. We will continue to monitor the patient. Further recommendation per clinical course. The patient is DNR. Talked to the family, introduced hospice as an option. We will keep monitoring the patient and also talking to the family about end of life issues and also palliative care. MD CARLOS MaynardJ/MODL /[id number]
[2019-02-23] MEDS: PANTOPRAZOLE SOD 40 MG TABEC PO SCH ×2 (09:00→17:00)
[2019-02-23] MEDS: BRIMONIDINE/TIMOLOL (OPTH SOLN 5 ML DRPETTE OP SCH ×2 (09:00→17:00)
[2019-02-23] MEDS: CHLORDIAZEPOXIDE/CLIDINIUM 1 CAP PO SCH ×3 (09:00→21:00)
--- NOTE | 2019-02-23 10:26 | NUR ---
pt is not eating anything paged and notified dr chong got new orders
[2019-02-23] MEDS: DEXTROSE 5% 1,000 ML IV SCH (11:15)
--- NOTE | 2019-02-23 11:51 | NUR ---
SPOKE WITH DAUGHTER FACILITY REP CAME TO BUILDING AND HAS AUTH FOR PT, DAUGHTER WILL DISCUSS WITH OTHER FAMILY MEMBERS, DAUGHTER STATES DR WALL ADVISED HOSPICE AT HOME AND WILL PROVIDE HIS RECOMMENDATION AND WE WILL GIVE CHOICE FOR FAMILY TO SIGN AND PUT IN CHART.
--- NOTE | 2019-02-23 13:29 | NUR ---
WOUND CARE CONSULT 79 YO MALE SCREENING DONE RELATED TO 12 RONY SCORE SKIN ASSESSMENT COMPLETE NURSING CONTINUES TO MONITOR AND ASSIST PATIENT OUT OF BED FOR MEALS AND TOLERATED NURSING CONTINUES TO ASSIST PATIENT WITH EVERY 2 HOUR TURNS AND PILLOW SUSPENSION OF HEELS WHEN IN BED NURSING TO CONTINUE TO MAINTAIN CONSERVATIVE PUP STATUS AND INTERVENTIONS Addendum: 02/23/19 at 1405 by Mike Adler RN Amended: Links added.
--- NOTE | 2019-02-23 13:39 | NUR ---
ST NOTE: Pt currently DNR, family discussing Hospice option, pt not appropriate for Speech intervention at this time, unable to follow commands effectively. Will follow pt status
--- NOTE | 2019-02-23 14:17 | NUR ---
Spoke with Dr. Lamas who stated that pt is hospice appropriate and that he has spoke to the family already. States family is still deciding on whether or not that's the route they want to take at this time. Dr. Lamas states to hold off on hospice eval at this time.
--- NOTE | 2019-02-23 15:37 | NUR ---
Discontinuing physical therapy services as per family request. Addendum: 02/23/19 at 1539 by Conner ventura PT Amended: Links added.
--- NOTE | 2019-02-23 19:04 | NUR ---
PT RESTING ON BED BED SIDE REPORT GIVEN TO ONCOMING NURSE
[2019-02-24] VITALS (8 sets, daily range): BP systolic 87–139; BP diastolic 56–82
[2019-02-24] MEDS: MEROPENEM 500MG/ NS 50ML 50 ML IV SCH ×2 (00:06→09:00)
--- NOTE | 2019-02-24 00:54 | NUR ---
Dr. Parker here for rounding. Orders received .
[2019-02-24] MEDS ORDERED: BISACODYL 10 MG SUPP PR ONE (01:00)
[2019-02-24 04:55] LABS: BASOPHILS # (AUTO) 0.1 (0.0-0.1); BASOPHILS % 0.6 % (0.0-1.0); EOSINOPHILS % 0.3 % (0.0-6.0); HEMATOCRIT 29.1 % (38.2-49.6); HEMOGLOBIN 10.1 g/dL (14.0-18.0); LYMPHOCYTES # (AUTO) 1.7 (1.0-3.2); LYMPHOCYTES % 17.6 % (18.0-39.1); MEAN CORPUSCULAR HEMOGLOBIN 37.1 pg (28-32); MEAN CORPUSCULAR HGB CONC 34.7 g/dL (31-35); MONOCYTES % 10.2 % (4.4-11.3); NEUTROPHILS # (AUTO) 6.9 (2.1-6.9); NEUTROPHILS % 70.5 % (38.7-80.0); PLATELET COUNT 64 x10e3/uL (140-360); RED BLOOD COUNT 2.72 x10e6/uL (4.3-5.7)
[2019-02-24 05:15] LABS: ALBUMIN 1.6 g/dL (3.5-5.0); ALBUMIN/GLOBULIN RATIO 0.4 (0.8-2.0); ANION GAP 11.1 mmol/L (8-16); CALCIUM 8.9 mg/dL (8.4-10.2); CREATININE, SERUM 1.97 mg/dL (0.72-1.25); POTASSIUM 4.1 mmol/L (3.5-5.1)
[2019-02-24] MEDS: LACTULOSE SYRUP 20 GM/30 ML UDC PO SCH ×3 (05:38→22:00)
[2019-02-24] MEDS: NYSTATIN SUSPENSION 5 ML UDC PO SCH ×3 (05:38→22:00)
[2019-02-24] MEDS: DEXTROSE 5% 1,000 ML IV SCH (05:59)
--- NOTE | 2019-02-24 07:00 | NUR ---
RCD PT AT BED PT AT BED PT IS ALERT AND ORIENTED IN TO 1-2 ,PT RESTING ON BED NO SIGNS OF ANY DISTRESS NOTED IV PATENT AND RUNNING 50 ML /HR CHANGED THE POSITION IN TO LEFT SIDE FAMILY AT BED SIDE BED LOW AND LOCKED CALL LIGHT IN REACH
[2019-02-24] MEDS: PANTOPRAZOLE SOD 40 MG TABEC PO SCH ×2 (09:00→17:00)
[2019-02-24] MEDS: CHLORDIAZEPOXIDE/CLIDINIUM 1 CAP PO SCH ×3 (09:00→21:00)
[2019-02-24] MEDS: BRIMONIDINE/TIMOLOL (OPTH SOLN 5 ML DRPETTE OP SCH ×2 (09:00→17:00)
[2019-02-24 10:27] LABS: PLATELET ESTIMATE MARKEDLY DECREASED; PLATELET MORPHOLOGY COMMENT FEW LARGE
--- NOTE | 2019-02-24 10:43 | NUR ---
ST NOTE: Family is discussing Hospice, pt not appropriate for Speech Therapy intervention at this time secondary to inability to follow commands and reduced level of alertness. Please re-consult if pt status improves. Handoff to NADIA Louie My, investor relations coordinator
--- NOTE | 2019-02-24 11:59 | NUR ---
Spoke to Daughter, she states they would like to go to [facility] with hospice care as soon as possible. Notified Dr. Lamas, he gives order to start hospice eval at [facility].
--- NOTE | 2019-02-24 12:54 | NUR ---
SPOKE WITH BUILDING TO FIND OUT WHO THEY HAVE A CONTRACT FOR HOSPICE, PT WILL HAVE TO PAY PRIVATE PAY AND HOSPICE WILL GET INSURANCE WILL EDUCATE FAMILY AND GET CHOICE FOR HOSPICE, OPTIONS ARE [facility], [facility] OR [facility].
--- NOTE | 2019-02-24 13:52 | NUR ---
SPOKE WITH FAMILY AND [facility] AND [facility], NEITHER HAVE A GIP AT THE BUILDING OF CHOICE AND THE [place] IS 156 A DAY PER [place]. ANDER WITH [facility] STATES SHE CAN DO A 1 WEEK (7 DAY RESPITE CARE) AT THE BUILDING. FAMILY WANTS TO DO THE RESPITE WITH [facility]. REP WILL COME TO [facility] AND MEET WITH THE FAMILY.
[2019-02-24] MEDS: LORAZEPAM INJ 2 MG/ML VIAL IV PRN (15:20)
--- NOTE | 2019-02-24 16:17 | NUR ---
Nutrition Intervention Note RD Recommendation(s) for Physician: -Diet per MD 2/2 change in status -Consult nutrition if aggressive care is desired -The patient meets criteria for unspecified SEVERE protein-calorie malnutrition. Plan of Care: RD following, monitoring for tolerance and adequacy. Education provided. Ensure Compact BID. Nutrition reason for involvement: follow up RD Assessment 02/24: Pt continues with poor intake, per daughter will not drink water. LOGISTICS LOSS PREVENTION MANAGER consulted, unable to evaluate at this time 2/2 mentation. Pt continues to decline, plan for Hospice at this time. RD to sign off, consult as needed. 02/22: Pt seen for follow up. Discussed during am rounds. Pt with N/V and significant pain at time of visit per family at bedside. Pt with fluctuating po intake, 25-90% of meals since admit. Pt drinking some of the Ensure Compact, family reports they are encouraging supplement intake if pt is not eating well. Encouraged diet and supplement intake as tolerated. Prior to today, no GI distress reported. All questions and concerns addressed at time of visit. Will continue to monitor. 02/18: 79 YOM admitted for anemia, ascites, cirrhosis, and coagulopathy with PMH listed below. Pt was seen resting in bed (appeared very fatigued) with family at his bedside. Daughter answered all questions during the visit. She reported the pt has been losing weight gradually over the last couple of years and that he does eat but he is very picky. Pt has been consuming 50% of his meals per meal assessment. Daughter reported the pt had N/V yesterday, and has been constipated for about one week, she denied chewing or swallowing issues as well as any food allergies. Observed temporal muscle wasting as well as orbital wasting. No past weights are within his EMR. Daughter reported the pt does consume Ensure, but can only drink half of the bottle, recommended Ensure Compact and explained to the daughter that it is only 4 ounces. Recommended to consume as tolerated. Spoke to nurse about supplement order. Daughter verbalized understanding. Also educated the daughter on a low Na diet and provided nutritional handout (food label, meal planning, grocery shopping tips, food label, foods recommended and not recommended). Per MD note- the pt came in with FTT, encouraged intake as tolerated. Will continue to monitor. Principal Problems/Diagnoses: ascites, cirrhosis, coagulopathy PMH: History of cirrhosis of the liver, alcoholic. The patient also has a history of encephalopathy in the past too. The patient also has a history of benign prostatic hypertrophy, status post TURP. GI: LBM: 02/22 Skin: Intact Labs: 02/24: BUN 33, Cr 1.97, Gluc 180 Meds: protonix, abx, lactulose, zofran, lasix Ht:67 in Wt:110 lbs BMI:17.2 kg/m^2 IBW:135 lbs Malnutrition Evaluation 02/18 The patient meets criteria for unspecified SEVERE protein-calorie malnutrition. Energy intake: <75% of estimated energy requirements for >3 months Weight loss: -unable to evaluate, daughter was unable to give weight hx and there are no weights in PMH, daughter mentioned there has been weight loss within the past 2 years Fat loss: Severe-temporal Muscle loss: Severe- hollow orbitals Supporting Evidence: Fluid accumulation: No clubbing, no cyanosis, no edema per MD note from 02/18 Functional Status: n/a Nutrition Prescription (Diet Order): 2 gm Na Estimated Nutritional Needs: Calories: 2661-3074(30-35 kcal/kg/day) Weight used : CBW Protein : 75-100(1.5-2 gram/kg/day ) Weight used: CBW Diet Adequacy: Not meeting calorie needs, Not meeting protein needs Diet Education Needs Assessment: Diet education indicated, but patient not appropriate for education at this time. family member was appropriate Nutrition Care Level: low, RD sign off- status change to hospice Nutrition Diagnosis: chronic protein calorie malnutrition related to medical condition as evidenced by reports from the daughter of poor appetite and observed nutrition focused physical findings of malnutrition. Goal: Patient will meet 75-100% of estimated needs by follow up Progress: not progressing Interventions: -Diet per MD per change in status to hospice Monitoring/Evaluation: -Diet per MD per change in status to hospice Nutrition Education 02/18 Learner(s): pts family Barriers: Pt was too fatigued to participate, family was educated Cultural/Language Modifications: No cultural/language modifications noted. Readiness: acceptance Method: Provided low Na handout, discussion Topics: Low Na Diet: How to read the food label, food shopping tips, foods recommended and not recommended, meal planning, not adding salt to foods Understanding/Compliance: Expect fair understanding/compliance from pt. All questions have been answered. Signed: Yumiko Arenas RD, LD, CNSC
--- NOTE | 2019-02-24 18:38 | NUR ---
PT RESTING ON BED BED SIDE REPORT GIVEN TO ONCOMING NURSE
--- NOTE | 2019-02-24 21:08 | Progress Note ---
DATE: 02/24/2019 SUBJECTIVE: The patient is a 79-year-old male, who came in with acute encephalopathy, acute hepatic failure and also with air in the common bile duct, representing infection. The patient is currently on antibiotic. White count has come down. The patient has florid cirrhosis of the liver and continues to deteriorate. The patient's family by the bedside. No chest pain. No shortness of breath noted. The patient is delirious and also waving in the air with no apparent reason. OBJECTIVE: VITAL SIGNS: Temperature is 96.5, pulse 96, respirations 16, blood pressure is 139/79, and pulse oximetry of 96%. HEENT: Normocephalic. The patient has icterus. CVS: S1 and S2 distant. Regular rate and rhythm. ABDOMEN: Nontender. Positive for ascites. EXTREMITIES: No clubbing, no cyanosis, no edema. The patient is cachectic and has severe protein malnutrition, energy malnutrition. LABORATORY VALUES: Today's hemoglobin is 10.1, hematocrit of 29.1, status post transfusion, white count is 9.73, platelet count 64. Chemistry, show a sodium of 139, potassium 4.1, BUN of 33, creatinine of 1.9, total bilirubin was 8.4 ASSESSMENT: This is a 79-year-old with: 1. Chronic hepatitis: 2. Pneumonia. 3. Sepsis. 4. Blood loss anemia. 5. Encephalopathy metabolic and toxic. PLAN: The patient is to be approached with Family has been done. The patient has been accepted to be DNR and also hospice transfer will be awaited. The patient needs SNF. The patient can go home with palliative care if needed, talked with family and family agreeable with this approach. Further recommendation and clinical course, we will continue to monitor the patient. MD SOFIA Maynard/MODL /[id number]
[2019-02-25] VITALS: BP 133/84
[2019-02-25] MEDS: LORAZEPAM INJ 2 MG/ML VIAL IV PRN (00:20)
[2019-02-25 04:00] VITALS: BP 129/87
[2019-02-25] MEDS: DEXTROSE 5% 1,000 ML IV SCH (04:34)
[2019-02-25] MEDS: LACTULOSE SYRUP 20 GM/30 ML UDC PO SCH (04:50)
[2019-02-25] MEDS: NYSTATIN SUSPENSION 5 ML UDC PO SCH (04:51)
--- NOTE | 2019-02-25 07:04 | NUR ---
walking rounds completed and shift change report received from night custodian RN; will continue to monitor.
[2019-02-25 07:54] VITALS: BP 122/72
[2019-02-25 08:52] VITALS: BP 122/72
--- NOTE | 2019-02-25 08:58 | NUR ---
NURSING FACILITY DISCHARGE INFORMATION WITH HOSPICE PATIENT HAS BEEN ACCEPTED TO: [facility] NAME: [facility] WITH [facility] ADDRESS: [id number] ACCEPTING MD: LEONIDAS ROOM: 316 NURSE CALL REPORT TO: [phone]
--- NOTE | 2019-02-25 10:11 | Progress Note ---
DATE: 02/25/2019 SUBJECTIVE: The patient comes in for hepatic encephalopathy, gas in the portal vein with septic shock. The patient is currently still confused. Moving his arms. No verbal response. No audible sentences spoke. The patient is moaning. OBJECTIVE: VITAL SIGNS: Temperature is 96.2, pulse is 92, respirations 16, blood pressure is 129/87, pulse oximeter of 98%. HEENT: Normocephalic. Positive for icterus. CVS: S1 and S2 normal. Regular rate and rhythm. ABDOMEN: Nontender. Positive for distention. Ascites positive. EXTREMITIES: No edema. The patient has cachexia. LABORATORY VALUES: None done today. The patient's white count had come down. Chemistries again not done. Creatinine had gone up. ASSESSMENT: A 79-year-old gentleman with chronic hepatitis and pneumonia, sepsis, blood loss anemia, encephalopathy. PLAN: The patient is DNR. We will continue monitoring the patient here and transfer to SNF with palliative care. Further recommendation in SNF. The patient's family talked too and does know the significance of the problem. MD CARLOS MaynardJ/MODL /[id number]
== END 2019-02-25 10:44 | DRG 871 ==
LOC: ER 13:48 → ERHOLD 17:39 → MED/SURG2 21:08
PROVIDERS: ADMIT Family Medicine; ATTEND Family Medicine
PROC: 30233L1 Transfusion of Nonautologous Fresh Plasma into Peripheral Vein, Percutaneous Approach (ICD-10-PCS; 2019-02-17)
PROC: 30233K1 Transfusion of Nonautologous Frozen Plasma into Peripheral Vein, Percutaneous Approach (ICD-10-PCS; 2019-02-17)
PROC: 0W9G3ZX Drainage of Peritoneal Cavity, Percutaneous Approach, Diagnostic (ICD-10-PCS; principal; 2019-02-18)
PROC: 30233N1 Transfusion of Nonautologous Red Blood Cells into Peripheral Vein, Percutaneous Approach (ICD-10-PCS; 2019-02-18)
DX: A41.50 Gram-negative sepsis, unspecified (principal); G92 Toxic encephalopathy; E43 Unspecified severe protein-calorie malnutrition; J18.9 Pneumonia, unspecified organism; R65.21 Severe sepsis with septic shock; K72.00 Acute and subacute hepatic failure without coma; Z68.1 Body mass index [BMI] 19.9 or less, adult; K92.1 Melena; N30.01 Acute cystitis with hematuria; D68.9 Coagulation defect, unspecified; N17.9 Acute kidney failure, unspecified; D62 Acute posthemorrhagic anemia; K76.6 Portal hypertension; K70.31 Alcoholic cirrhosis of liver with ascites; R62.7 Adult failure to thrive; E87.6 Hypokalemia; J10.1 Influenza due to other identified influenza virus with other respiratory manifestations; E87.5 Hyperkalemia; F10.20 Alcohol dependence, uncomplicated; F17.210 Nicotine dependence, cigarettes, uncomplicated; N18.9 Chronic kidney disease, unspecified; K70.10 Alcoholic hepatitis without ascites; D69.59 Other secondary thrombocytopenia; R53.81 Other malaise; Z66 Do not resuscitate
CPT/HCPCS: 36415; 49083; 71045; 71046; 74176; 74177; 74230; 74470; 80048; 80053; 81001; 82040; 82140; 82550; 82553; 82607; 82728; 83540; 83605; 84466; 84484; 85025; 85045; 85610; 85730; 86850; 86900; 86920; 87040; 87070; 87071; 87205; 87400; 88112; 88305; 89051; 93005; 97139; 99284; C1729; J1200; J1580; J1940; J2060; J2270; J2353; J2354; J2405; J3370; J3430; J7030; J7040; J7050; J7070; P9016; P9017; Q9967